=== PATIENT | male | born 1960 | race Caucasian/White ===

== ENCOUNTER 2016-11-15 21:00 | Observation (INO) | payer MEDICAID, MEDICARE ==
--- NOTE | 2016-11-15 22:11 | RADIOLOGY REPORT (SQ) ---
EXAM DESCRIPTION: CT HEAD WITHOUT COMPLETED DATE/TIME: 11/15/2016 10:01 pm REASON FOR STUDY: stroke alert COMPARISON: None. TECHNIQUE: Axial images acquired through the brain without intravenous contrast. Images reviewed wi th bone, brain and subdural windows. Images stored on PACS. All CT scanners at this facility use dose modulation, iterative reconstruction, and/or weight based d osing when appropriate to reduce radiation dose to as low as reasonably achievable (ALARA). [facility]: Dose Right [facility]: CareDose [facility]: Dose Right [facility]: Teradose 4D [facility]: Smart EpiBone RADIATION DOSE: Up-to-date CT equipment and radiation dose reduction techniques were employed. CTDIv ol: 49.0 mGy. DLP: 1077 mGy-cm. mGy. LIMITATIONS: None. FINDINGS: VENTRICLES: Normal size and contour. CEREBRUM: No masses. No hemorrhage. No midline shift. Normal shane/white matter differentiation. N o evidence for acute infarction. CEREBELLUM: No masses. No hemorrhage. No alteration of density. No evidence for acute infarction. EXTRAAXIAL SPACES: No fluid collections. No masses. ORBITS AND GLOBE: No intra- or extraconal masses. Normal contour of globe without masses. CALVARIUM: No fracture. PARANASAL SINUSES: No fluid or mucosal thickening. SOFT TISSUES: No mass or hematoma. OTHER: No other significant finding. IMPRESSION: NORMAL BRAIN CT WITHOUT CONTRAST. TECHNICAL DOCUMENTATION: JOB ID: [id number] Quality ID # [id number]: Final reports with documentation of one or more dose reduction techniques (e.g., Au tomated exposure control, adjustment of the mA and/or kV according to patient size, use of iterative reconstruction technique) 2010 [employer]- All Rights Reserved
--- NOTE | 2016-11-15 22:12 | RADIOLOGY REPORT (SQ) ---
EXAM DESCRIPTION: CHEST SINGLE VIEW COMPLETED DATE/TIME: 11/15/2016 10:05 pm REASON FOR STUDY: stroke alert COMPARISON: July 2013 EXAM PARAMETERS: NUMBER OF VIEWS: One view. TECHNIQUE: Single frontal radiographic view of the chest acquired. RADIATION DOSE: NA LIMITATIONS: None. FINDINGS: LUNGS AND PLEURA: No opacities, masses or pneumothorax. No pleural effusion. MEDIASTINUM AND HILAR STRUCTURES: No masses. Contour normal. HEART AND VASCULAR STRUCTURES: Cardiac silhouette is at the upper limits of normal in size. BONES: Degenerative changes are identified in the thoracic spine HARDWARE: None in the chest. OTHER: No other significant finding. IMPRESSION: NO ACUTE RADIOGRAPHIC FINDING IN THE CHEST. TECHNICAL DOCUMENTATION: JOB ID: [id number]
--- NOTE | 2016-11-15 22:14 | ER Document Report ---
ED General - General Chief Complaint: S/S of Possible Stroke Stated Complaint: HEADACHE/LEFT HAND NUMB Time Seen by Provider: 11/15/16 21:59 Notes: Patient is a 56-year-old male who presents with complaint of strokelike symptoms. On patient's triage sheet he says he has a headache and left-sided weakness. Patient says that the headache is actually nothing new. He says he has recurrent intermittent headaches. He says headache feels like his typical headache and is unchanged. He says the main reason he came in is because he noticed is having worsening difficulty with his left upper extremity. He said that he noticed it first this morning. He says throughout the day has been worsening. He says at times he cannot open his hand. He says he has poor control of his left arm as hard time moving his left arm. He is also had a hard time expressing thoughts through speech also has noticed that he is having a difficult time comprehending what he is seeing on TV. Denies any trauma to his head. He denies previous history of stroke. Denies any recent infections or fevers. He says he used to be on blood pressure medications but no longer take them. He does smoke. He says he does not take any medications. No alcohol or drug history. TRAVEL OUTSIDE OF THE [place] IN LAST 30 DAYS: No - Related Data Allergies/Adverse Reactions: No Known Allergies Allergy (Verified 11/15/16 21:49) Past Medical History - Social History Smoking Status: Current Every Day Smoker Frequency of alcohol use: None Drug Abuse: None Family History: Reviewed & Not Pertinent - Past Medical History Cardiac Medical History: Reports: Hx Hypertension, Hx Peripheral Vascular Disease Renal/ Medical History: Denies: Hx Peritoneal Dialysis Past Surgical History: Reports: Hx Orthopedic Surgery - left knee 30 years ago, Hx Vascular Surgery - arterial bypasses both legs - Immunizations Hx Diphtheria, Pertussis, Tetanus Vaccination: No Review of Systems - Review of Systems Notes: My Normal Review Basic REVIEW OF SYSTEMS: CONSTITUTIONAL : Denies fever, chills, or sweats. Denies recent illness. EENT: Denies eye, ear, throat, or mouth pain or symptoms. Denies nasal or sinus congestion. CARDIOVASCULAR: Denies chest pain. RESPIRATORY: Denies cough, cold, or chest congestion. Denies shortness of breath, difficulty breathing, or wheezing. GASTROINTESTINAL: Denies abdominal pain. Denies nausea, vomiting, or diarrhea. Denies constipation. Last BM: GENITOURINARY: Denies difficulty urinating, painful urination, burning, frequency, or blood in urine. MUSCULOSKELETAL: Denies neck or back pain or joint pain or swelling. SKIN: Denies rash or skin lesions. HEMATOLOGIC : Denies easy bruising or bleeding. LYMPHATIC: Denies swollen, enlarged glands. NEUROLOGICAL: Denies altered mental status or loss of consciousness. Recurrent chronic headache. Weakness of left upper extremity. ALL OTHER SYSTEMS REVIEWED AND NEGATIVE. Physical Exam - Vital signs Vitals: Temp Pulse Resp BP Pulse Ox 97.7 F 92 18 163/95 H 96 11/15/16 21:50 11/15/16 21:50 11/15/16 21:50 11/15/16 21:50 11/15/16 21:50 - Notes Notes: General Appearance: Well nourished, alert, cooperative, no acute distress, no obvious discomfort. Vitals: reviewed, See vital signs table. Head: no swelling or tenderness to the head Eyes: PERRL, EOMI, Conjuctiva clear Mouth: No decreasd moisture Neck: Supple, no neck tenderness, No thyromegaly Lungs: No wheezing, No rales, No rhonci, No accessory muscle use, good air exchange bilaterally. Heart: Normal rate, Regular rythm, No murmur, no rub Abdomen: Normal BS, soft, No rigidity, No abdominal tenderness, No guarding, no rebound, no abdominal masses, no organomegaly Extremities: strength 5/5 in all extremities, good pulses in all extremities, no swelling or tenderness in the extremities, no edema. Skin: warm, dry, appropriate color, no rash Neuro: speech clear, oriented x 3, normal affect, responds appropriately to questions. Cranial nerves II through XII are intact with exception of slight facial droop on the right with smiling. Patient has obvious weakness and discoordination of the left upper extremity. Patient's gait is slightly staggered but he says this is normal for him and unchanged. Patient is good strength with plantar dorsiflexion of both lower extremities. Patient has some pronator drift in the left upper extremity. Right upper extremity is normal. Distal sensation is intact in all 4 extremities except for some mild numbness in her lower extremities which she says is chronic due to history of vascular disease in his lower extremities. Course - Re-evaluation Re-evalutation: 11/15/16 23:59 On reevaluation patient's symptoms have remained the same and they are not progressing. I did speak with the hospitalist who agrees to admit the patient due to his symptoms of stroke. Patient is agreeable to the admission. Dictation of this chart was performed using voice recognition software; therefore, there may be some unintended grammatical errors. - Vital Signs Vital signs: Temp Pulse Resp BP Pulse Ox 97.7 F 105 H 27 H 136/106 H 95 11/15/16 21:50 11/15/16 22:10 11/15/16 23:01 11/15/16 23:00 11/15/16 23:01 - Laboratory Result Diagrams: 11/15/16 22:20 11/15/16 23:00 Laboratory results interpreted by me: 11/15/16 11/15/16 22:20 23:00 WBC 11.4 H Hgb 18.0 H Hct 53.9 H MCV 100 H MCH 33.6 H RDW 14.1 H Chloride 108 H - EKG Interpretation by Me Additional EKG results interpreted by me: 11/15/16 22:45 EKG is reviewed and interpreted by me. EKG shows sinus rhythm with rate of [address] segment elevation or depression. Patient does have slight T-wave inversion in lead I and aVL. TN interval, QRS duration, QTc intervals are within normal range. Old EKG for comparison is from August 04, 2013.
[2016-11-15 22:35] LABS: ABSOLUTE BASOPHILS # (AUTO) 0.1 10^3/uL (0.0-0.2); ABSOLUTE EOSINOPHILS # (AUTO) 0.1 10^3/uL (0.0-0.6); ABSOLUTE LYMPHOCYTES (AUTO) 2.9 10^3/uL (0.5-4.7); ABSOLUTE MONOCYTES (AUTO) 0.9 10^3/uL (0.1-1.4); ABSOLUTE NEUT (AUTO) 7.4 10^3/uL (1.7-8.2); BASOPHILS % (AUTO) 1.1 % (0-2); EOSINOPHILS % (AUTO) 0.7 % (0-6); HEMATOCRIT 53.9 % (37.9-51.0); HGB HCT DIFFERENCE 0.1; LYMPHOCYTES % (AUTO) 25.5 % (13-45); MEAN CORPUSCULAR HEMOGLOBIN 33.6 pg (27.0-33.4); MEAN CORPUSCULAR HGB CONC 33.4 g/dL (32.0-36.0); MEAN CORPUSCULAR VOLUME 100 fl (80-97); MONOCYTES % (AUTO) 8.1 % (3-13); RED BLOOD COUNT 5.37 10^6/uL (4.35-5.55); RED CELL DISTRIBUTION WIDTH 14.1 % (11.5-14.0); SEGMENTED NEUTROPHILS % (AUTO) 64.6 % (42-78); WHITE BLOOD COUNT 11.4 10^3/uL (4.0-10.5)
[2016-11-15 22:40] LABS: PARTIAL THROMBOPLASTIN TIME 31.5 SEC (23.5-35.8)
[2016-11-15 22:42] LABS: PROTHROMBIN TIME 12.7 SEC (11.4-15.4)
--- NOTE | 2016-11-15 22:47 | ER Document Report ---
ED NIH Stroke Scale - NIH Stroke Scale *: 1. NIH scale should be completed with appropriate accompanying assessment tools. *: 2. The NIH should reflect what the patient is capable of doing and should not be coached by the clinician. 1a. Level of Consciousness: 0=Alert;keenly responsive -: 1=Drowsy -: 2=Obtunded -: 3=Coma/unresponsive or reflex to noxious stimuli. 1a. Responses: 0 1b. Orientation Questions: a. What month is it? -: b. How old are you? -: 0=Answers both questions correctly. -: 1=Answers one question correctly or patient is intubated or has orotracheal trauma. -: 2=Answers neither question correctly. 1b. Responses: 0 1c. Response to commands: a. Open and close eyes? -: b. Boiler Technician and release hand? -: Credit is given despite weakness. Demonstration of task is permitted. Substitute command if hands cannot be used. -: 0=Performs both tasks correctly -: 1=Performs one task correctly -: 2=Performs neither task correctly 1c. Responses: 0 2. Gaze: Establish eye contact and instruct patient to "Follow my finger" -: 0=Normal -: 1=Partial gaze palsy. Gaze is abnormal in one or both eyes, but where forced deviation or total gaze paresis is not present. -: 2=Forced deviation or total gaze paresis. 2. Responses: 0 3. Visual Boucher: Sees fingers in all four quadrants. -: 0=No visual loss. -: 1=Partial hemianopsia. -: 2=Complete hemianopsia. -: 3=Bilateral hemianopsia (including Cortical blindness) 3. Responses: 0 4. Facial Movement: Instruct patient to: -: a. Show me your teeth -: b. Raise your eyebrows -: c. Close your eyes -: d. Smile -: 0=Normal symmetrical movement -: 1=Minor paralysis (flattened nasolabial fold, asymmetry on smiling). -: 2=Partial paralysis (total or near total paralysis of lower face). -: 3=Complete paralysis of upper and lower face 4. Responses: 1 5. Motor functions (left arm): Alternate sides and extend each arm with palms down (90 degrees if sitting or 45 degrees for supine). -: 0=No drift;limb holds for full 10 seconds. -: 1=Drift; limb holds but drifts down before full 10 seconds, but does not hit bed. -: 2=Some effort against gravity; limb cannot get to or maintain position. -: 3=No effort against gravity; limb falls. -: 4=No movement. -: UN=Amputation, joint fusion, explain in comments. 5. Responses (left arm): 1 5. Motor Functions (right arm): Alternate sides and extend each arm with palms down (90 degrees if sitting or 45 degrees for supine). -: 0=No drift;limb holds for full 10 seconds. -: 1=Drift; limb holds but drifts down before full 10 seconds, but does not hit bed. -: 2=Some effort against gravity; limb cannot get to or maintain position. -: 3=No effort against gravity; limb falls. -: 4=No movement. -: UN=Amputation, joint fusion, explain in comments. 5. Responses (right arm): 0 6. Motor Functions (left leg): With patient lying supine, alternate sides and extend each leg (30 degrees always while supine). -: 0=No drift, leg holds position for full 5 seconds -: 1=Drift; leg falls before full 5 seconds but does not hit bed. -: 2=Some effort against gravity, leg falls to bed but some effort against gravity. -: 3=No effort against gravity, leg falls to bed immediately. -: 4=No movement. -: UN=Amputation, joint fusion; explain in comments. 6. Responses (left leg): 0 6. Motor Functions (right leg): With patient lying supine, alternate sides and extend each leg (30 degrees always while supine). -: 0=No drift, leg holds position for full 5 seconds -: 1=Drift; leg falls before full 5 seconds but does not hit bed. -: 2=Some effort against gravity, leg falls to bed but some effort against gravity. -: 3=No effort against gravity, leg falls to bed immediately. -: 4=No movement. -: UN=Amputation, joint fusion; explain in comments. 6. Responses (right leg): 0 7. Limb Ataxia: With eyes open instruct patient to: -: a. "Touch your finger to your nose". -: b. "Touch your heel to your wilson" -: 0=Absent -: 1=Present in one limb. -: 2=Present in two limbs. -: UN=Amputation or joint fusion; explain in comments. 7. Responses: 1 7. If ataxia present choose as appropriate: Left arm 8. Sensory: Test sensation using pinprick or noxious stimuli. Test as many body parts as possible. -: 0=Normal;no sensory loss -: 1=Mile to moderate sensory loss (patient feels pin prick but is less sharp on affected side). -: 2=Severe or total sensory loss. 8. Responses: 0 9. Best Language: Instruct patient to: -: a. "Describe what you see in this picture." -: b. "Name the items in this picture." -: c. "Read these sentences." -: 0=No aphasia, normal -: 1=Mild to moderate aphasia. -: 2=Severe aphasia -: 3=Mute, global aphasia, no usable speech or auditory comprehension. 9. Responses: 0 10. Articulation, Dysarthia: Instruct patient to: -: "Read these words" or "Repeat these words" -: 0=Normal -: 1=Mild to moderate; patient may slur some words but can be understood without difficulty. -: 2=Severe; patients speech so slurred as to be unintelligible in the absence of dysphasia. -: UN=Intubated or other physical barrier, explain in comments. 10. Responses: 0 11. Extinction or inattention: 0=No abnormality -: 1= Visual, tactile, auditory, spatial, or personal inattention or extinction to bilateral simulation in one or the sensory modalities. -: 2=Profound zackary-inattention or zackary-inattention to more than one modality; does not recognize own hand. 11. Responses: 0 Total Score: 3
[2016-11-15 23:29] LABS: ALANINE AMINOTRANSFERASE 34 U/L (21-72); ALBUMIN 4.1 g/dL (3.5-5.0); ALKALINE PHOSPHATASE 57 U/L (38-126); ANION GAP 12 (5-19); ASPARTATE AMINO TRANSFERASE 19 U/L (17-59); BILIRUBIN,DIRECT 0.4 mg/dL (0.0-0.4); BILIRUBIN,TOTAL 0.5 mg/dL (0.2-1.3); BLOOD UREA NITROGEN 9 mg/dL (7-20); CALCIUM 9.1 mg/dL (8.4-10.2); CARBON DIOXIDE 23 mmol/L (22-30); CHLORIDE 108 mmol/L (98-107); CREATINE KINASE 149 U/L (55-170); CREATININE RESULT 0.83 mg/dL (0.52-1.25); GLUCOSE 103 mg/dL (75-110); POTASSIUM 4.3 mmol/L (3.6-5.0); SODIUM 142.6 mmol/L (137-145); TOTAL PROTEIN 7.3 g/dL (6.3-8.2)
[2016-11-15] MEDS ORDERED: ASPIRIN 325 MG TABLET PO ONE (23:32)
[2016-11-15 23:41] LABS: CREATINE KINASE MB 1.73 ng/mL (<4.55)
[2016-11-15 23:43] LABS: TROPONIN I < 0.012 ng/mL
[2016-11-16] MEDS ORDERED: ACETAMINOPHEN 325 MG TABLET PO PRN (04:20)
[2016-11-16] MEDS ORDERED: DEXTROSE 5%-NORMAL SALINE 1,000 ML IV PRN (04:20)
[2016-11-16] MEDS ORDERED: MAGNESIUM HYDROXIDE SUSP 30 ML UDCUP PO PRN (04:20)
[2016-11-16] MEDS ORDERED: PROMETHAZINE HCL 25 MG TABLET PO PRN (04:27)
--- NOTE | 2016-11-16 04:49 | PDOC H&P ---
History of Present Illness Admission Date/PCP: 11/16/16 03:12 Primary care provider none Patient complains of: Strokelike symptoms History of Present Illness: JOSIAH TAMAYO is a 56 year old male with known peripheral vascular disease, having undergone a previous aortobifemoral bypass, hypertension, noncompliance, having been off all medications for some time now, chronic headaches, and half pack a day smoker who presents to the emergency room for evaluation of above complaints. Patient has been discussed with emergency room physician who evaluated the patient. Since the morning of the , patient has noted difficulty moving and controlling his left upper extremity. Gradually worsened throughout the day. At one point, could not open his left hand. Also is having difficulty expressing his thoughts, along with difficulty comprehending content on the television. No dysphagia, drooling, dysarthria, or any change in the chronic difficulty he has with his lower extremities. States that if he walks more than a few minutes , he not uncommonly will fall down, that his legs "give way." Recurrence of his typical headache. Denies any head trauma. No history of stroke, TIA, mini stroke, or seizure. No nausea vomiting, fever or chills, chest or abdominal pain.. Hospitalized at our facility the through 06 August 2013, with final diagnoses including abdominal wall hematoma involving rectus muscle. Discharge summary and hospitalist consult reviewed. Dictation via voice recognition software. Laboratory results are listed in [facility] and are reviewed. X-ray summary results are listed below, with full report(s) reviewed. . EKG 2 reviewed and compared to a prior tracing from August 04, 2013. Social history/personal habits: . Has children. On disability and unemployed, primarily due to his peripheral vascular disease. Half pack of cigarettes per day. No alcohol or illicit drug use. No known drug allergies. Home medications currently none. States he was previously on multiple medications, but a number of months ago, simply stopped taking them. REVIEW OF SYSTEMS: Constitutional: No fever or chills. Eyes: Wears glasses. ENT: No swallowing problems or complaints. Denies hearing loss. Pulmonary: No current complaints. Cardiovascular: No chest pain. See history and present illness. Gastrointestinal: No current complaints, including nausea or vomiting. Skin: No current complaints, including rashes. Hematologic: Denies easy bruising. Neurologic: See history and present illness. Musculoskeletal: No current or chronic joint complaints, such as arthritis. Psychiatric: Denies anxiety or depression. Endocrine: No current complaints, including polyuria. Genitourinary: No current complaints, including dysuria. PHYSICAL EXAMINATION: 5 feet 9 inches tall. 97.4 kg. BMI 31.7 kg/m. Blood pressure 122/88. Pulse 92 and regular. 95% saturation on room air. Respirations are 24 and unlabored. Temperature 97.7. Obese otherwise well-developed though somewhat disheveled bearded male , who nevertheless appears a number of years younger than his stated age. Pleasant awake alert and cooperative. Somewhat talkative. Mildly anxious, without agitation. Smells of tobacco smoke. Skin is warm and dry. No grossly obvious evidence of rash in areas of skin examined. No subcutaneous nodules palpated. ENT: Hearing grossly normal to normal conversation. Tongue midline on protrusion pink and slightly tacky. Eyes: No scleral icterus. Pupils equal and reactive to light at 4 mm. [place] conjunctivae. Neck is supple and nontender to gentle active range of motion and palpation. Midline trachea. No palpable thyroid nodule mass enlargement or tenderness. Lymphatic: No palpable cervical or clavicular nodes. Neck and lymphatic exams limited by patient body habitus. Psychiatric: Reasonable insight into acute and chronic medical issues. Oriented to time location and why here. Lungs: Auscultation reveals clear and equal breath sounds bilaterally. No use of accessory respiratory muscles. Cardiovascular: Heart regular rate and rhythm, without gallop murmur or rub. No carotid or abdominal aortic bruits. No ankle or pedal edema. Faintly palpable left dorsalis pedis pulse. Not sure I can palpate dorsalis pedis and posterior tibial pulses on the right, but foot is warm and dry, with quite acceptable capillary refill. Abdomen:soft slightly distended nontender with positive bowel sounds. Unable to adequately evaluate abdomen for masses or organomegaly due to distention. Extremities: Hands and feet are warm and dry. No calf tenderness to compression. No grossly obvious visual evidence of calf swelling. Gentle manipulation of upper and lower extremities fails to reveal any obvious evidence of injury or instability to involved major joints. Neurologic: Cranial Nerves II through XII are grossly intact, although a bit difficult to examine for drooping of the mouth due to his rather thick estrada. Light touch intact at face, upper and lower extremities. Motor function of major muscle groups upper and lower extremities 5 over 5 and symmetric, with the exception of very subtle weakness in left price lister versus right. Patellar reflexes absent. Absent Babinski. No nystagmus. Appears to have slight difficulty with proprioception of his left upper extremity. Observe to move from a standing to seated to supine position with only slight difficulty sliding up in bed while seated. Past Medical History Cardiac Medical History: Reports: Hypertension, Peripheral Vascular Disease Denies: Atrial Fibrillation, Congestive Heart Failure, Coronary Artery Disease, DVT, Myocardial Infarction, Hyperlipidema, Pulmonary Embolism Pulmonary Medical History: Denies: Asthma, Chronic Obstructive Pulmonary Disease (COPD), Sleep Apnea EENT Medical History: Reports: Eyes - Glasses Denies: Ears, Throat Neurological Medical History: Denies: Hemorrhagic CVA, Ischemic CVA, Seizures Endocrine Medical History: Denies: Diabetes Mellitus Type 1, Diabetes Mellitus Type 2, Hyperthyroidism, Hypothyroidism Renal/ Medical History: Reports: None GI Medical History: Denies: Cirrhosis, Gastroesophageal Reflux Disease, Hepatitis, Peptic Ulcer Disease Musculoskeltal Medical History: Denies: Arthritis Skin Medical History: Reports: None Psychiatric Medical History: Reports: Tobacco Dependency Denies: Alcohol Dependency, Depression, General Anxiety Disorder, Substance Abuse Hematology: Reports: None Infectious Medical History: Denies: Clostridium Difficile, Hepatitis B, Hepatitis C, Methicillin- Resistant Staph Aureus Past Surgical History Past Surgical History: Reports: Orthopedic Surgery - left knee 30 years ago, Vascular Surgery - Aortobifemoral bypass Social History Information Source: Patient, Emergency Med Personnel, [facility] Records Smoking Status: Current Every Day Smoker Frequency of Alcohol Use: None Hx Recreational Drug Use: No Drugs: None Hx Prescription Drug Abuse: No - Advance Directive Resuscitation Status: Full Code Surrogate healthcare decision maker:: Mother Family History Family History: Reviewed & Not Pertinent Parental Family History Reviewed: Yes - Mother with "typical old age problems" father of old age. Children Family History Reviewed: Yes - Healthy Sibling(s) Family History Reviewed.: Yes - Healthy Medication/Allergy Home Medications: Acetaminophen [Tylenol 325 mg Tablet] 650 mg PO Q4HP PRN tablet 11/17/16 Aspirin [Aspirin 325 mg Tablet] 325 mg PO DAILY #30 tablet 11/17/16 Atorvastatin Calcium [Lipitor 40 mg Tablet] 40 mg PO QHS #30 tablet 11/17/16 Carvedilol [Coreg 6.25 mg Tablet] 6.25 mg PO Q12 #60 tablet 11/17/16 Lisinopril [Prinivil 10 mg Tablet] 10 mg PO DAILY #30 tablet 11/17/16 Walker [Folding Walker] 1 each ASDIR PRN #1 each 11/17/16 Allergies/Adverse Reactions: No Known Allergies Allergy (Verified 11/16/16 04:26) Physical Exam Vital Signs: Temp Pulse Resp BP Pulse Ox 97.7 F 77 20 122/85 93 11/15/16 21:50 11/16/16 01:10 11/16/16 03:31 11/16/16 03:31 11/16/16 03:31 Results Impressions: Chest X-Ray 11/15/16 21:53 IMPRESSION: NO ACUTE RADIOGRAPHIC FINDING IN THE CHEST. Head CT 11/15/16 21:53 IMPRESSION: NORMAL BRAIN CT WITHOUT CONTRAST. Assessment & Plan - Diagnosis (1) Abnormal EKG Is this a current diagnosis for this admission?: YesPlan: No outward evidence of acute coronary syndrome, but will obtain serial troponins , along with repeat EKG. Denies chest pain. (2) Acute focal neurological deficit Is this a current diagnosis for this admission?: YesPlan: Patient will be placed in observation bed admitted under CVA/TIA protocol. Multiple imaging procedures, intracranial, vascular, and cardiac. lipid panel. Permissive hypertension. Patient is a full code. I have strongly urged patient not to get out of bed without calling nursing staff, to avoid a fall with injury. Knee high SCDs for DVT prophylaxis, along with subcutaneous Lovenox. Impression and plans were discussed with patient, who concurs. Time spent in evaluation and management of patient: 68 minutes (3) Left hemiparesis Is this a current diagnosis for this admission?: Yes (4) HTN (hypertension) Qualifiers: Hypertension type: essential hypertension Qualified Code(s): I10 - Essential (primary) hypertension Is this a current diagnosis for this admission?: YesPlan: Permissive hypertension. (5) Tobacco dependency Is this a current diagnosis for this admission?: Yes - Time Time Spent: 50 to 70 Minutes Medications reviewed and adjusted accordingly: Yes Anticipated discharge: Home Within: within 48 hours
[2016-11-16 05:21] LABS: ABSOLUTE BASOPHILS # (AUTO) 0.1 10^3/uL (0.0-0.2); ABSOLUTE EOSINOPHILS # (AUTO) 0.1 10^3/uL (0.0-0.6); ABSOLUTE LYMPHOCYTES (AUTO) 2.9 10^3/uL (0.5-4.7); ABSOLUTE MONOCYTES (AUTO) 0.9 10^3/uL (0.1-1.4); ABSOLUTE NEUT (AUTO) 5.4 10^3/uL (1.7-8.2); BASOPHILS % (AUTO) 1.2 % (0-2); EOSINOPHILS % (AUTO) 0.6 % (0-6); HEMATOCRIT 50.1 % (37.9-51.0); HEMOGLOBIN 17.3 g/dL (13.5-17.0); HGB HCT DIFFERENCE 1.8; LYMPHOCYTES % (AUTO) 30.9 % (13-45); MEAN CORPUSCULAR HGB CONC 34.5 g/dL (32.0-36.0); MEAN CORPUSCULAR VOLUME 99 fl (80-97); MONOCYTES % (AUTO) 9.6 % (3-13); RED BLOOD COUNT 5.07 10^6/uL (4.35-5.55); RED CELL DISTRIBUTION WIDTH 13.9 % (11.5-14.0); SEGMENTED NEUTROPHILS % (AUTO) 57.7 % (42-78); WHITE BLOOD COUNT 9.4 10^3/uL (4.0-10.5)
[2016-11-16 05:31] LABS: CHOLESTEROL 166.11 mg/dL (0-200); Direct HDL 31 mg/dL (>40); TRIGLYCERIDES 126 mg/dL (<150)
[2016-11-16 05:42] LABS: DIRECT LDL 123 mg/dL (<100)
--- NOTE | 2016-11-16 08:06 | EKG REPORT ---
SEVERITY:- ABNORMAL ECG - SINUS RHYTHM PROBABLE LEFT ATRIAL ABNORMALITY ANTERIOR INFARCT, AGE INDETERMINATE (since 08.04.13) : Confirmed by: Sloan Kessler MD 16-Nov-2016 08:05:31
--- NOTE | 2016-11-16 09:53 | RADIOLOGY REPORT (SQ) ---
EXAM DESCRIPTION: MRI HEAD WITHOUT COMPLETED DATE/TIME: 11/16/2016 9:39 am REASON FOR STUDY: tia vs cva--lt hemiparesis D72.829 ELEVATED WHITE BLOOD CELL COUNT, UNSPECIFIED I 10 ESSENTIAL (PRIMARY) HYPERTENSION COMPARISON: CT dated 11/15/2016. TECHNIQUE: Multiplanar imaging includes non-contrasted T1, T2, FLAIR, and diffusion with ADC map seq uences. Images stored on PACS. LIMITATIONS: None. FINDINGS: ANATOMY: No anomalies. Normal vascular flow voids. Pituitary fossa normal. CSF SPACES: Atrophy induced prominence of ventricles and CSF spaces. CEREBRUM: High signal intensity lesions scattered throughout the white matter on FLAIR imaging with d istribution suggesting micro-vascular ischemic changes. No evidence of hemorrhage, mass, or extraaxi al fluid collection. POSTERIOR FOSSA: No signal alteration. No hemorrhage. No edema, masses or mass effect. Internal angelic tory canals, cerebello-pontine angles, mastoids normal. DIFFUSION IMAGING: Several areas of restricted diffusion in the right parietal lobe and occipital lob e. One focal area of restricted diffusion in the right cerebellar hemisphere. ORBITS: No masses. Globes normal. PARANASAL SINUSES: No fluid levels. Mucosa normal. OTHER: No other significant finding. IMPRESSION: ATROPHY AND CHRONIC MICRO-VASCULAR ISCHEMIC CHANGES. There are several areas of restric mame diffusion consistent with acute infarct in the right parietal lobe and occipital lobe and one sma ll focal area of restricted diffusion in the right cerebellar hemisphere. EVIDENCE OF ACUTE STROKE: YES. RIGHT MCA TECHNICAL DOCUMENTATION: JOB ID: [id number] [employer]- All Rights Reserved
[2016-11-16] MEDS: ENOXAPARIN SODIUM INJ 40 MG/0.4 ML DISP.SYRIN SUBCUT SCH (10:53)
[2016-11-16] MEDS: ATORVASTATIN CALCIUM 80 MG TABLET PO SCH (10:54)
[2016-11-16] MEDS: DOCUSATE SODIUM 100 MG CAPSULE PO SCH ×2 (10:55→17:19)
[2016-11-16] MEDS: ASPIRIN 325 MG TABLET, ENT COATED PO SCH (10:55)
--- NOTE | 2016-11-16 12:57 | RADIOLOGY REPORT (SQ) ---
EXAM DESCRIPTION: CAROTID DOPPLER COMPLETED DATE/TIME: 11/16/2016 11:57 am REASON FOR STUDY: tia vs cva--lt hemiparesis D72.829 ELEVATED WHITE BLOOD CELL COUNT, UNSPECIFIED I 10 ESSENTIAL (PRIMARY) HYPERTENSION COMPARISON: None. TECHNIQUE: Grayscale ultrasound, Doppler velocity and spectra, and color Doppler images acquired of the extra-cranial carotid and vertebral arteries. Images stored on PACS. LIMITATIONS: None. FINDINGS: RIGHT CAROTID CCA Velocities: Within normal limits. ICA Velocities Peak systolic 0.7 m/s. End diastolic 0.37 m/s. Proximal ICA/CCA peak systolic ratio 0.9. Spectra normal. No significant plaque. LEFT CAROTID CCA Velocities: Within normal limits. ICA Velocities Peak systolic 0.6 m/s. End diastolic 0.2 m/s. Proximal ICA/CCA peak systolic ratio 0.8. Spectra normal. No significant plaque. VERTEBRAL ARTERIES: Antegrade flow. Normal waveforms. SUBCLAVIAN ARTERIES: No finding. OTHER: No other significant finding. IMPRESSION: NO HEMODYNAMICALLY SIGNIFICANT STENOSIS. COMMENT: Quality ID #[id number]: Velocity criteria are extrapolated from the diameter data as defined by t he Society of Radiologists in Ultrasound Consensus Conference. Radiology 2003: 229; 340-346. TECHNICAL DOCUMENTATION: JOB ID: [id number] [employer]- All Rights Reserved
--- NOTE | 2016-11-16 13:15 | XCELERA REPORT ---
[address] [address] Transthoracic Echocardiogram Report Name: JOSIAH TAMAYO Age: 56 yrs Gender: Male : 1960 Patient Status: Inpatient Patient Location: [id number]\S\315\[id number]\A Study Date: 11/16/2016 10:02 AM Height: 69 in Weight: 214 lb BSA: 2.1 m2 Procedure: A complete two-dimensional transthoracic echocardiogram was performed (2D, M-mode, spectral and color flow Doppler). The study was technically difficult with many images being suboptimal in quality. Reason For Study: tia vs cva--lt hemiparesis Ordering Physician: TALIA AMBRIZ Performed By: Corinne Schneider Interpretation Summary Left ventricular systolic function is severely reduced. LV EF is 35% Doppler measurements suggest pseudonormalized left ventricular relaxation, which is associated with grade II/IV or mild to moderate diastolic dysfunction Increased echodensity at apex is suspicious for thrombus. There is apical wall akinesis The left ventricle is grossly normal size. There is mild concentric left ventricular hypertrophy. The right ventricular systolic function is normal. The left atrial size is normal. The right atrium is normal in size There is a trace amount of mitral regurgitation There is no mitral valve stenosis. No aortic regurgitation is present. There is no aortic valve stenosis There is a trace or physiologic amount of tricuspid regurgitation Tricuspid regurgitation jet envelope not well defined to measure RV systolic pressure accurately. The aortic root is not well visualized but is probably normal size. The inferior vena cava was not well visualized There is no pericardial effusion. MMode/2D Measurements \T\ Calculations RVDd: 3.0 cm LVIDd: 5.6 cmFS: 16.1 % Ao root diam: 3.9 cm IVSd: 1.2 cm LVIDs: 4.7 cmEDV(Teich): 155.9 ml LVPWd: 1.2 cmESV(Teich): 103.8 mlAo root area: 11.8 cm2 EF(Teich): 33.4 % LA dimension: 3.6 cm LVOT diam: 2.6 cm LVOT area: 5.2 cm2 Doppler Measurements \T\ Calculations MV E max jose de jesus: MV P1/2t max jose de jesus: Ao V2 max: LV V1 max P.7 cm/sec 49.4 cm/sec 92.8 cm/sec 2.1 mmHg MV A max jose de jesus: MV P1/2t: 58.2 msec Ao max PG: LV V1 max: 87.3 cm/sec MVA(P1/2t): 3.8 cm2 3.4 mmHg 73.1 cm/sec MV E/A: 0.56 MV dec slope: MIGUE(V,D): 4.1 cm2 248.5 cm/sec2 PA V2 max: 58.0 cm/sec PA max P.3 mmHg Left Ventricle The left ventricle is grossly normal size. There is mild concentric left ventricular hypertrophy. Left ventricular systolic function is severely reduced. LV EF is 35%. Doppler measurements suggest pseudonormalized left ventricular relaxation, which is associated with grade II/IV or mild to moderate diastolic dysfunction. There is apical wall akinesis. Increased echodensity at apex is suspicious for thrombus. Right Ventricle The right ventricle is normal in size, thickness and function. There is normal right ventricular wall thickness. The right ventricular systolic function is normal. Atria The right atrium is normal in size. The left atrial size is normal. Interarterial septum not well visualized and not well dopplered. Cannot comment on ASD/PFO presence. Mitral Valve The mitral valve is grossly normal. There is no mitral valve stenosis. There is a trace amount of mitral regurgitation. Aortic Valve The aortic valve is not well visualized secondary to technical limitations. There is no aortic valve stenosis. No aortic regurgitation is present. Tricuspid Valve The tricuspid valve is not well visualized, but is grossly normal. There is no tricuspid stenosis. There is a trace or physiologic amount of tricuspid regurgitation. Tricuspid regurgitation jet envelope not well defined to measure RV systolic pressure accurately. Pulmonic Valve The pulmonic valve is not well visualized. Great Vessels The aortic root is not well visualized but is probably normal size. The inferior vena cava was not well visualized. Effusions There is no pericardial effusion. : TALIA AMBRIZ > Elida Hayden
--- NOTE | 2016-11-16 13:55 | PDOC PROGRESS REPORT ---
Subjective Progress Note for:: 11/16/16 Subjective:: Patient was seen on morning rounds. He states he still has some left arm and leg weakness but it is much better that it was when he came in . He admits to not taking any medications that he has been prescribed for sometime. He also smokes 1-2 ppd of cigarettes. He denies any dysphagia or difficulty swallowing. Physical Exam Vital Signs: Temp Pulse Resp BP Pulse Ox 97.8 F 86 21 H 122/76 97 11/16/16 12:18 11/16/16 12:18 11/16/16 12:18 11/16/16 12:18 11/16/16 12:18 Intake & Output 11/15/16 11/16/16 11/17/16 06:59 06:59 06:59 Intake Total 598 Balance 598 General appearance: PRESENT: no acute distress, disheveled, obese, well- developed, well-nourished Head exam: PRESENT: atraumatic, normocephalic Eye exam: PRESENT: conjunctiva pink, EOMI, PERRLA. ABSENT: scleral icterus Ear exam: PRESENT: normal external ear exam Mouth exam: PRESENT: moist, tongue midline Neck exam: ABSENT: carotid bruit, JVD, lymphadenopathy, thyromegaly Respiratory exam: PRESENT: clear to auscultation osavldo. ABSENT: rales, rhonchi, wheezes Cardiovascular exam: PRESENT: RRR. ABSENT: diastolic murmur, rubs, systolic murmur Pulses: PRESENT: normal carotid pulses, normal radial pulses Vascular exam: PRESENT: normal capillary refill GI/Abdominal exam: PRESENT: normal bowel sounds, soft. ABSENT: distended, guarding, mass, organolmegaly, rebound, tenderness Rectal exam: PRESENT: deferred Extremities exam: PRESENT: full ROM. ABSENT: calf tenderness, clubbing, pedal edema Musculoskeletal exam: PRESENT: ambulatory, full ROM Neurological exam: PRESENT: alert, awake, oriented to person, oriented to place , oriented to time, oriented to situation, CN II-XII grossly intact, normal gait , other - left sided weakness 4/5 in muscle strenght. ABSENT: motor sensory deficit Psychiatric exam: PRESENT: appropriate affect, normal mood. ABSENT: homicidal ideation, suicidal ideation Skin exam: PRESENT: dry, intact, warm. ABSENT: cyanosis, rash Results Laboratory Results: 11/16/16 05:00 11/16/16 11/16/16 05:00 05:00 WBC 9.4 RBC 5.07 Hgb 17.3 H Hct 50.1 MCV 99 H MCH 34.0 H MCHC 34.5 RDW 13.9 Plt Count 231 Seg Neutrophils % 57.7 Lymphocytes % 30.9 Monocytes % 9.6 Eosinophils % 0.6 Basophils % 1.2 Absolute Neutrophils 5.4 Absolute Lymphocytes 2.9 Absolute Monocytes 0.9 Absolute Eosinophils 0.1 Absolute Basophils 0.1 Triglycerides 126 Cholesterol 166.11 LDL Cholesterol Direct 123 H VLDL Cholesterol 25.0 HDL Cholesterol 31 L 11/16/16 11/16/16 05:00 10:35 Troponin I < 0.012 < 0.012 Impressions: Chest X-Ray 11/15/16 21:53 IMPRESSION: NO ACUTE RADIOGRAPHIC FINDING IN THE CHEST. Head CT 11/15/16 21:53 IMPRESSION: NORMAL BRAIN CT WITHOUT CONTRAST. Head MRI 11/16/16 04:24 IMPRESSION: ATROPHY AND CHRONIC MICRO-VASCULAR ISCHEMIC CHANGES. There are several areas of restricted diffusion consistent with acute infarct in the right parietal lobe and occipital lobe and one small focal area of restricted diffusion in the right cerebellar hemisphere. EVIDENCE OF ACUTE STROKE: YES. RIGHT MCA Carotid Doppler Study 11/16/16 04:25 IMPRESSION: NO HEMODYNAMICALLY SIGNIFICANT STENOSIS. Assessment & Plan - Diagnosis (1) Stroke Qualifiers: CVA mechanism: unspecified Qualified Code(s): I63.9 - Cerebral infarction, unspecified Plan: MRI show acute cerebral infarcts of right middle cerebral artery. His symptoms have improved since admission. He has mild left sided weakness. (2) Left hemiparesis Is this a current diagnosis for this admission?: YesPlan: Improved from admission, 4/5 in muscle strength (3) HTN (hypertension) Qualifiers: Hypertension type: essential hypertension Qualified Code(s): I10 - Essential (primary) hypertension Is this a current diagnosis for this admission?: YesPlan: Will add low dose kraan and beta jai (4) Noncompliance Is this a current diagnosis for this admission?: YesPlan: Counseled (5) PVD (peripheral vascular disease) Is this a current diagnosis for this admission?: YesPlan: Continue aspirin and statin (6) Tobacco dependency Is this a current diagnosis for this admission?: YesPlan: Counseled. He has no intentions of quitting (7) Chronic combined systolic and diastolic CHF, NYHA class 3 Is this a current diagnosis for this admission?: YesPlan: Echo shows EF of 35%, grade II/IV diastolic heart failure. Will add low dose beta jai and karan inhibitor - Time Time Spent with patient: 25-34 minutes Critical Time spent with patient: 15-24 minutes Smoking Cessation Education: 3 to 10 minutes Medications reviewed and adjusted accordingly: Yes
[2016-11-16 19:37] LABS: APPEARANCE,URINE CLEAR; BILIRUBIN,URINE NEGATIVE (NEGATIVE); GLUCOSE, URINE NEGATIVE (NEGATIVE); KETONES,URINE NEGATIVE (NEGATIVE); LEUKOCYTE ESTERASE,URINE NEGATIVE (NEGATIVE); NITRITE,URINE NEGATIVE (NEGATIVE); PROTEIN,URINE NEGATIVE (NEGATIVE); URINE SPECIFIC GRAVITY 1.015; UROBILINOGEN,URINE NEGATIVE mg/dL (<2.0)
[2016-11-16] MEDS: CARVEDILOL 3.125 MG TABLET PO SCH (21:47)
[2016-11-17 09:13] VITALS: BP 135/81
[2016-11-17] MEDS ORDERED: LISINOPRIL 10 MG TABLET PO SCH (10:00)
[2016-11-17] MEDS: ATORVASTATIN CALCIUM 80 MG TABLET PO SCH (10:07)
[2016-11-17] MEDS: ASPIRIN 325 MG TABLET, ENT COATED PO SCH (10:07)
[2016-11-17] MEDS: CARVEDILOL 3.125 MG TABLET PO SCH (10:08)
[2016-11-17] MEDS: ENOXAPARIN SODIUM INJ 40 MG/0.4 ML DISP.SYRIN SUBCUT SCH (10:09)
[2016-11-17] MEDS: DOCUSATE SODIUM 100 MG CAPSULE PO SCH (10:09)
--- NOTE | 2016-11-17 15:18 | PDOC DISCHARGE SUMMARY ---
General - Admit/Disc Date/PCP Admission Date/Primary Care Provider: 11/16/16 04:20 Discharge Date: 11/17/16 - Discharge Diagnosis (1) Stroke Is this a current diagnosis for this admission?: YesSummary: MRI showed acute small infarcts in right parietal, occipital lobes with mild left extremities weakness. Patient refuses home health nursing and PT. He is agreeable to use walker. He will take statin and aspirin (2) Left hemiparesis Is this a current diagnosis for this admission?: YesSummary: Mild 4/5 muscle weakness on the left (3) HTN (hypertension) Is this a current diagnosis for this admission?: YesSummary: Patient placed on JENNIFER/Beta jai (4) Noncompliance Is this a current diagnosis for this admission?: YesSummary: Patient was counseled (5) PVD (peripheral vascular disease) Is this a current diagnosis for this admission?: YesSummary: Will begin aspirin and statin again (6) Tobacco dependency Is this a current diagnosis for this admission?: YesSummary: Counseled. He states he will try to quit (7) Chronic combined systolic and diastolic CHF, NYHA class 3 Is this a current diagnosis for this admission?: YesSummary: Patient is euvolemic at the present time - Additional Information Resuscitation Status: Full Code Discharge Diet: Cardiac Discharge Activity: Activity As Tolerated, Balance Activity w/Rest Home Medications: Acetaminophen [Tylenol 325 mg Tablet] 650 mg PO Q4HP PRN tablet 11/17/16 Aspirin [Aspirin 325 mg Tablet] 325 mg PO DAILY #30 tablet 11/17/16 Atorvastatin Calcium [Lipitor 40 mg Tablet] 40 mg PO QHS #30 tablet 11/17/16 Carvedilol [Coreg 6.25 mg Tablet] 6.25 mg PO Q12 #60 tablet 11/17/16 Lisinopril [Prinivil 10 mg Tablet] 10 mg PO DAILY #30 tablet 11/17/16 Walker [Folding Walker] 1 each ASDIR PRN #1 each 11/17/16 History of Present Illness Patient complains of: Left sided weakness History of Present Illness: JOSIAH TAMAYO is a 56 year old male with known peripheral vascular disease, having undergone a previous aortobifemoral bypass, hypertension, noncompliance, having been off all medications for some time now, chronic headaches, and half pack a day smoker who presents to the emergency room for evaluation of above complaints. Patient has been discussed with emergency room physician who evaluated the patient. Since the morning of the , patient is noted difficulty moving in controlling his left upper extremity. Gradually worsened throughout the day. At one point, could not open his left hand. Also is having difficulty expressing his thoughts, along with difficulty comprehending content on the television. No dysphagia, drooling, dysarthria, or any change in the chronic difficulty he has with his lower extremities. States that if he walks more than a few minutes , he not uncommonly will fall down, that his legs "give way." Recurrence of his typical headache. Denies any head trauma. No history of stroke, TIA, mini stroke, or seizure. No nausea vomiting, fever or chills, chest or abdominal pain.. Hospital Course Hospital Course: Patient was admitted to the [facility] on telemetry. His MENDS remained unchanged. MRI done the following more showed acute infarcts in right occipatal and parietal areas. His dyarthria improved. His left sided weakness improved to a mild 4/5 muscle strength deficit. He worked with PT and OT who felt patient could be discharged home with home health PT and nursing. Patient has refused this. He had transthoracic echo done which showed EF to be reduced to an EF of 35% with cardiomegaly and grade II/IV diastolic dysfunction. He did not want to undergo stress testing or any further cardiac workup. He states he will be compliant with medications. Physical Exam Vital Signs: Temp Pulse Resp BP Pulse Ox 97.9 F 82 19 135/81 H 95 11/17/16 11:19 11/17/16 11:19 11/17/16 11:19 11/17/16 11:19 11/17/16 11:19 Intake & Output 11/16/16 11/17/16 11/18/16 06:59 06:59 06:59 Intake Total 1958 Output Total 200 Balance 1758 General appearance: PRESENT: no acute distress, obese, well-developed, well- nourished Head exam: PRESENT: atraumatic, normocephalic Eye exam: PRESENT: conjunctiva pink, EOMI, PERRLA. ABSENT: scleral icterus Ear exam: PRESENT: normal external ear exam Mouth exam: PRESENT: moist, tongue midline Neck exam: ABSENT: carotid bruit, JVD, lymphadenopathy, thyromegaly Respiratory exam: PRESENT: clear to auscultation osvaldo, symmetrical, unlabored. ABSENT: rales, rhonchi, wheezes Cardiovascular exam: PRESENT: RRR. ABSENT: diastolic murmur, rubs, systolic murmur Pulses: PRESENT: normal dorsalis pedis pul Vascular exam: PRESENT: normal capillary refill GI/Abdominal exam: PRESENT: normal bowel sounds, soft. ABSENT: distended, guarding, mass, organolmegaly, rebound, tenderness Rectal exam: PRESENT: deferred Extremities exam: PRESENT: full ROM Musculoskeletal exam: PRESENT: ambulatory, full ROM, other - 4/5 muscle strenght in left sided extremities Neurological exam: PRESENT: alert, awake, oriented to person, oriented to place , oriented to time, oriented to situation, CN II-XII grossly intact Psychiatric exam: PRESENT: appropriate affect, normal mood. ABSENT: homicidal ideation, suicidal ideation Skin exam: PRESENT: dry, intact, warm. ABSENT: cyanosis, rash Results Laboratory Results: 11/16/16 05:00 11/16/16 19:10 Urine Color YELLOW Urine Appearance CLEAR Urine pH 6.0 Ur Specific Jermyn 1.015 Urine Protein NEGATIVE Urine Glucose (UA) NEGATIVE Urine Ketones NEGATIVE Urine Blood NEGATIVE Urine Nitrite NEGATIVE Ur Leukocyte Esterase NEGATIVE Urine WBC (Auto) 1 Urine RBC (Auto) 0 11/16/16 11/16/16 05:00 10:35 Troponin I < 0.012 < 0.012 Impressions: Chest X-Ray 11/15/16 21:53 IMPRESSION: NO ACUTE RADIOGRAPHIC FINDING IN THE CHEST. Head CT 11/15/16 21:53 IMPRESSION: NORMAL BRAIN CT WITHOUT CONTRAST. Head MRI 11/16/16 04:24 IMPRESSION: ATROPHY AND CHRONIC MICRO-VASCULAR ISCHEMIC CHANGES. There are several areas of restricted diffusion consistent with acute infarct in the right parietal lobe and occipital lobe and one small focal area of restricted diffusion in the right cerebellar hemisphere. EVIDENCE OF ACUTE STROKE: YES. RIGHT MCA Carotid Doppler Study 11/16/16 04:25 IMPRESSION: NO HEMODYNAMICALLY SIGNIFICANT STENOSIS. Qualifiers PATEINT BEING DISCHARGED WITH ANY OF THE FOLLOWING DIAGNOSIS?: Stroke VTE patient discharged on overlapping Therapy?: Yes Stroke Pt being discharged on Anti-thrombolytic therapy?: Yes Stroke Pt being discharged on Anti-coagulation therapy?: No Reason(s) for not prescribing Anti-coagulation therapy:: Not indicated Stroke Pt being discharged on Statins?: Yes Plan Discharge Plan: Home with a friend Time Spent: Less than 30 Minutes
== END 2016-11-17 11:35 | disposition home or self-care (01) ==
LOC: ER 21:00 → INTOOBSV 11-16 03:12 → UNDOADMOB 11-16 03:12 → EH 11-16 03:12 → 3W 11-16 05:51
PROVIDERS: ADMIT Family Medicine; ATTEND Family Medicine
PROC: HZ31ZZZ Individual Counseling for Substance Abuse Treatment, Behavioral (ICD-10-PCS; principal; 2016-11-15)
DX: I63.9 Cerebral infarction, unspecified (principal); G81.94 Hemiplegia, unspecified affecting left nondominant side; I69.322 Dysarthria following cerebral infarction; I73.9 Peripheral vascular disease, unspecified; I11.0 Hypertensive heart disease with heart failure; I50.42 Chronic combined systolic (congestive) and diastolic (congestive) heart failure; Z91.19 Patient's noncompliance with other medical treatment and regimen; F17.210 Nicotine dependence, cigarettes, uncomplicated; Z95.1 Presence of aortocoronary bypass graft; E66.9 Obesity, unspecified; Z68.31 Body mass index [BMI] 31.0-31.9, adult; R51 Headache; R94.31 Abnormal electrocardiogram [ECG] [EKG]
CPT/HCPCS: 99406; 93005; 99285; 36415 ×2; 82553; 82550; 83735; 84443; 85025 ×2; 85610; 85730; 80053; 81001; 84484 ×2; 80061; 93306; 93880; 70551; 71010; 70450; 93010; 97163; 92523; 97167; G0378 ×3; A9270 ×9; J1650; J3490; G8978; G8979; G9162; G9163; G9164; G8987; G8988

== ENCOUNTER 2018-05-25 13:27 | Emergency (ER) | payer MEDICARE ==
--- NOTE | 2018-05-25 13:57 | ER Document Report ---
ED Medical Screen (RME) - General Chief Complaint: Chest Pain Stated Complaint: CHEST PAIN Time Seen by Provider: 05/25/18 13:54 Mode of Arrival: Ambulatory Information source: Patient Notes: Patient is a 58-year-old male past medical history of stroke and hypertension who presents to the emergency department with chest pain that started last night. Patient reports the chest pain feels like a pressure across his chest. He has associated numbness and tingling to his bilateral arms and hands. He also has diaphoresis, nausea and vomiting. He is diaphoretic on arrival. Patient's blood pressure significantly elevated, patient states history of hypertension but he stopped taking his medication several years ago. Patient reports he had 3 or 4 aspirins today, unknown what dose. Will hold off on ordering aspirin. Patient is a smoker, drinks 3-4 times weekly, has history of hypertension, hyperlipidemia. Exam: Skin diaphoretic. Heart sounds S1-S2 present no ectopy noted. Lung sounds clear to auscultation bilaterally. I have greeted and performed a rapid initial assessment of this patient. A comprehensive ED assessment and evaluation of the patient, analysis of test results and completion of the medical decision making process will be conducted by additional ED providers. Dictation of this chart was performed using voice recognition software; therefore, there may be some unintended grammatical errors. TRAVEL OUTSIDE OF THE [place] IN LAST 30 DAYS: No - Related Data Allergies/Adverse Reactions: No Known Allergies Allergy (Verified 11/16/16 04:26) Past Medical History - Past Medical History Cardiac Medical History: Reports: Hx Hypertension, Hx Peripheral Vascular Disease Denies: Hx Atrial Fibrillation, Hx Congestive Heart Failure, Hx Coronary Artery Disease, Hx DVT, Hx Heart Attack, Hx Hypercholesterolemia, Hx Pulmonary Embolism Pulmonary Medical History: Denies: Hx Asthma, Hx COPD, Hx Sleep Apnea Neurological Medical History: Denies: Hx Seizures Endocrine Medical History: Denies: Hx Diabetes Mellitus Type 1, Hx Diabetes Mellitus Type 2, Hx Hyperthyroidism, Hx Hypothyroidism Renal/ Medical History: Denies: Hx Peritoneal Dialysis GI Medical History: Denies: Hx Cirrhosis, Hx Gastroesophageal Reflux Disease, Hx Hepatitis Musculoskeltal Medical History: Denies Hx Arthritis Psychiatric Medical History: Denies: Hx Depression Infectious Medical History: Denies: Hx C-Diff, Hx Hepatitis, Hx MRSA Past Surgical History: Reports: Hx Orthopedic Surgery - left knee 30 years ago, Hx Vascular Surgery - Aortobifemoral bypass - Immunizations Hx Diphtheria, Pertussis, Tetanus Vaccination: No
--- NOTE | 2018-05-25 14:30 | RADIOLOGY REPORT (SQ) ---
EXAM DESCRIPTION: CHEST SINGLE VIEW COMPLETED DATE/TIME: 05/25/2018 2:17 pm REASON FOR STUDY: chest pain COMPARISON: 07/25/2013 EXAM PARAMETERS: NUMBER OF VIEWS: One view. TECHNIQUE: Single frontal radiographic view of the chest acquired. RADIATION DOSE: NA LIMITATIONS: None. FINDINGS: LUNGS AND PLEURA: Few Ed lines at both lung bases, question mild interstitial edema. No perihilar pulmonary edema or pleural effusions. No pneumothorax. MEDIASTINUM AND HILAR STRUCTURES: No masses. Contour normal. HEART AND VASCULAR STRUCTURES: Mild cardiomegaly BONES: No acute findings. HARDWARE: None in the chest. OTHER: No other significant finding. IMPRESSION: Mild cardiomegaly with few Ed lines at the right lung base, question fluid overload TECHNICAL DOCUMENTATION: JOB ID: [id number] [employer]- All Rights Reserved Reading location - IP/workstation name: [email or web address]
[2018-05-25 16:28] LABS: ABSOLUTE MONOCYTES (AUTO) 0.6 10^3/uL (0.1-1.4); ABSOLUTE NEUT (AUTO) 6.7 10^3/uL (1.7-8.2); BASOPHILS % (AUTO) 0.5 % (0-2); EOSINOPHILS % (AUTO) 0.1 % (0-6); HEMATOCRIT 49.7 % (37.9-51.0); HEMOGLOBIN 17.4 g/dL (13.5-17.0); LYMPHOCYTES % (AUTO) 21.8 % (13-45); MEAN CORPUSCULAR HEMOGLOBIN 38.8 pg (27.0-33.4); MEAN CORPUSCULAR HGB CONC 35.1 g/dL (32.0-36.0); MONOCYTES % (AUTO) 6.2 % (3-13); RED BLOOD COUNT 4.48 10^6/uL (4.35-5.55); SEGMENTED NEUTROPHILS % (AUTO) 71.4 % (42-78); TOTAL CELLS COUNTED % (AUTO) 100 %; WHITE BLOOD COUNT 9.3 10^3/uL (4.0-10.5)
[2018-05-25 16:30] LABS: ALANINE AMINOTRANSFERASE 14 U/L (21-72); ALBUMIN 4.4 g/dL (3.5-5.0); ALKALINE PHOSPHATASE 100 U/L (38-126); ANION GAP 11 (5-19); ASPARTATE AMINO TRANSFERASE 57 U/L (17-59); BILIRUBIN,DIRECT 0.6 mg/dL (0.0-0.4); BILIRUBIN,TOTAL 1.5 mg/dL (0.2-1.3); BLOOD UREA NITROGEN 9 mg/dL (7-20); CALCIUM 8.6 mg/dL (8.4-10.2); CARBON DIOXIDE 28 mmol/L (22-30); CHLORIDE 102 mmol/L (98-107); CREATINE KINASE 354 U/L (55-170); GLUCOSE 106 mg/dL (75-110); POTASSIUM 3.8 mmol/L (3.6-5.0); SODIUM 140.9 mmol/L (137-145); TOTAL PROTEIN 8.2 g/dL (6.3-8.2)
[2018-05-25 16:48] LABS: CREATINE KINASE MB 3.59 ng/mL (<4.55)
[2018-05-25 16:58] LABS: TROPONIN I 0.243 ng/mL
[2018-05-25 17:03] LABS: ANISOCYTOSIS 1+; PLATELET CLUMPS PRESENT; PLATELET LARGE PRESENT
[2018-05-25 17:04] LABS: MEAN CORPUSCULAR VOLUME 111 fl (80-97); PLATELET COMMENT ADEQUATE; PLATELET COUNT 264 10^3/uL (150-450)
--- NOTE | 2018-05-25 19:06 | ER Document Report ---
ED General - General Chief Complaint: Chest Pain Stated Complaint: CHEST PAIN Time Seen by Provider: 05/25/18 13:54 Mode of Arrival: Ambulatory Information source: Patient, [facility] Records Notes: 58-year-old male with hypertension, peripheral vascular disease, remote history of CVA presents with plan of chest pain that started 1 day prior to arrival while at rest. Patient states his pain is located across his chest and he describes it as a intermittent pressure-like pain. Patient has had associated nausea, diaphoresis and shortness of breath. Patient reports that he has been vomiting continuously for 2 days. He does continue to smoke 5-6 cigarettes/day. He states that he drinks daily to help with his neuropathy. Patient discontinued his blood thinning medication and blood pressure medications 2 years ago because he states they made him "not feel right". Patient is unsure whether he has ever had a stress test. He does report a femoral bypass that was performed 5 years ago in [place]. Patient is currently chest pain-free. TRAVEL OUTSIDE OF THE [place] IN LAST 30 DAYS: No - HPI Onset: Yesterday Onset/Duration: Sudden, Intermittent Quality of pain: Pressure Severity: Mild Associated symptoms: Chest pain, Nausea, Vomiting, Shortness of breath, Sweating. denies: Fever, Headache Exacerbated by: Denies Relieved by: Denies Similar symptoms previously: No Recently seen / treated by doctor: No - Related Data Allergies/Adverse Reactions: No Known Allergies Allergy (Verified 05/25/18 14:01) Past Medical History - General Information source: Patient - Social History Smoking Status: Current Every Day Smoker Cigarette use (# per day): Yes - 5 Smoking Education Provided: Yes - Smoking cessation counseling was provided for 4 minutes at the bedside Frequency of alcohol use: Social Drug Abuse: None Lives with: Alone Family History: Reviewed & Not Pertinent Patient has suicidal ideation: No Patient has homicidal ideation: No - Past Medical History Cardiac Medical History: Reports: Hx Hypertension, Hx Peripheral Vascular Disease Denies: Hx Atrial Fibrillation, Hx Congestive Heart Failure, Hx Coronary Artery Disease, Hx DVT, Hx Heart Attack, Hx Hypercholesterolemia, Hx Pulmonary Embolism Pulmonary Medical History: Denies: Hx Asthma, Hx COPD, Hx Sleep Apnea Neurological Medical History: Denies: Hx Seizures Endocrine Medical History: Denies: Hx Diabetes Mellitus Type 1, Hx Diabetes Mellitus Type 2, Hx Hyperthyroidism, Hx Hypothyroidism Renal/ Medical History: Denies: Hx Peritoneal Dialysis GI Medical History: Denies: Hx Cirrhosis, Hx Gastroesophageal Reflux Disease, Hx Hepatitis Musculoskeletal Medical History: Denies Hx Arthritis Psychiatric Medical History: Denies: Hx Depression Infectious Medical History: Denies: Hx C-Diff, Hx Hepatitis, Hx MRSA Past Surgical History: Reports: Hx Orthopedic Surgery - left knee 30 years ago, Hx Vascular Surgery - Aortobifemoral bypass - Immunizations Hx Diphtheria, Pertussis, Tetanus Vaccination: No Review of Systems - Review of Systems Notes: REVIEW OF SYSTEMS: CONSTITUTIONAL : Denies fever, chills. Denies recent illness. Denies weight loss, recent hospitalizations. EENT: Denies visual changes, eye pain. Denies sore throat, oral lesions, difficulty swallowing. CARDIOVASCULAR: Denies palpitations. Denies lower extremity edema. RESPIRATORY: Denies cough. Denies wheezing. GASTROINTESTINAL: Denies abdominal pain or distention. Denies diarrhea. Denies blood in vomitus, stools, or per rectum. Denies black, tarry stools. Denies constipation. GENITOURINARY: Denies difficulty urinating, painful urination, frequency, blood in urine, testicular pain or penile discharge. MUSCULOSKELETAL: Denies back or neck pain or stiffness. Denies joint pain or swelling. SKIN: Denies rash, lesions or sores. HEMATOLOGIC : Denies easy bruising or bleeding. LYMPHATIC: Denies swollen glands. NEUROLOGICAL: Denies confusion or altered mental status. Denies loss of consciousness. Denies dizziness or lightheadedness. Denies headache. Denies weakness or paralysis. Denies problems difficulty with ambulation, slurred speech. Denies sensory loss, numbness, or tingling. Denies seizures. PSYCHIATRIC: Denies anxiety or stress. Denies depression, suicidal ideation, or Physical Exam - Vital signs Vitals: Temp Pulse Resp BP Pulse Ox 98.1 F 100 22 H 187/98 H 99 05/25/18 14:00 05/25/18 14:00 05/25/18 14:05/25/18 14:05/25/18 14:00 - Notes Notes: PHYSICAL EXAMINATION: GENERAL: Well-appearing, well-nourished and in no acute distress. HEAD: Atraumatic, normocephalic. EYES: Pupils equal round and reactive to light, extraocular movements intact, sclera anicteric, conjunctiva are normal. ENT: Nares patent, oropharynx clear without exudates. Moist mucous membranes. NECK: Normal range of motion, supple without lymphadenopathy LUNGS: Breath sounds clear to auscultation bilaterally and equal. No wheezes rales or rhonchi. HEART: Regular rate and rhythm without murmurs ABDOMEN: Soft, nontender, nondistended abdomen. No guarding, no rebound. No masses appreciated. Musculoskeletal: Normal range of motion, no pitting or edema. No cyanosis. NEUROLOGICAL: Cranial nerves grossly intact. Normal speech, normal gait. Normal sensory, motor exams PSYCH: Normal mood, normal affect. SKIN: Warm, Dry, normal turgor, no rashes or lesions noted. Course - Re-evaluation Re-evalutation: Laboratory 05/25/18 05/25/18 05/25/18 15:50 15:50 15:50 WBC 9.3 RBC 4.48 Hgb 17.4 H Hct 49.7 MCV 111 H MCH 38.8 H MCHC 35.1 RDW 17.0 H Plt Count 264 Seg Neutrophils % 71.4 Lymphocytes % 21.8 Monocytes % 6.2 Eosinophils % 0.1 Basophils % 0.5 Absolute Neutrophils 6.7 Absolute Lymphocytes 2.0 Absolute Monocytes 0.6 Absolute Eosinophils 0.0 Absolute Basophils 0.0 Clumped Platelets PRESENT Large Platelets PRESENT Platelet Comment ADEQUATE Anisocytosis 1+ Macrocytosis 3+ Sodium 140.9 Potassium 3.8 Chloride 102 Carbon Dioxide 28 Anion Gap 11 BUN 9 Creatinine 0.73 Est GFR ( Amer) > 60 Est GFR (Non-Af Amer) > 60 Glucose 106 Calcium 8.6 Total Bilirubin 1.5 H Direct Bilirubin 0.6 H Neonat Total Bilirubin Not Reportable Neonat Direct Bilirubin Not Reportable Neonat Indirect Bili Not Reportable AST 57 ALT 14 L Alkaline Phosphatase 100 Creatine Kinase 354 H CK-MB (CK-2) 3.59 Troponin I 0.243 Total Protein 8.2 Albumin 4.4 05/25/18 18:02 WBC RBC Hgb Hct MCV MCH MCHC RDW Plt Count Seg Neutrophils % Lymphocytes % Monocytes % Eosinophils % Basophils % Absolute Neutrophils Absolute Lymphocytes Absolute Monocytes Absolute Eosinophils Absolute Basophils Clumped Platelets Large Platelets Platelet Comment Anisocytosis Macrocytosis Sodium Potassium Chloride Carbon Dioxide Anion Gap BUN Creatinine Est GFR ( Amer) Est GFR (Non-Af Amer) Glucose Calcium Total Bilirubin Direct Bilirubin Neonat Total Bilirubin Neonat Direct Bilirubin Neonat Indirect Bili AST ALT Alkaline Phosphatase Creatine Kinase CK-MB (CK-2) Troponin I 0.226 Total Protein Albumin Chest X-Ray 05/25/18 13:55 IMPRESSION: Mild cardiomegaly with few Ed lines at the right lung base, question fluid overload Temp Pulse Resp BP Pulse Ox 98.5 F 100 16 146/75 H 98 05/25/18 20:00 05/25/18 14:00 05/25/18 19:02 05/25/18 19:02 05/25/18 19:02 58-year-old male presents with complaint of chest pain that started yesterday evening. Reports associated diaphoresis, nausea, vomiting, shortness of breath. Does have a significant history for peripheral vascular disease requiring a femoral bypass. He does have a significant smoking history as well. Cardiac enzymes were obtained and showed an elevation in troponin of 0.234. Patient is currently pain-free upon my exam. Lovenox was administered and patient did receive aspirin. He is declining any pain medication at this time. Vital signs within normal limits. EKG was obtained which showed the patient to be in sinus tachycardia cardia at a rate of 103. QTc 477. Q waves are seen in the anterior leads. Patient administered morphine, Zofran after he reported recurrence of pain. Repeat EKG was obtained and now shows PVCs. No ST elevation. 05/25/18 20:[address] Byrd on-call for cardiology and he believes the patient will require cardiac cath and likely stent placement due to patient's history. He recommends transfer. Patient is agreeable with transfer. Patient placed on the wait list at [facility]. They currently have no beds. 05/25/18 20:20 [facility] also contacted for transfer. They report a bed wait for at least 48 hours on regional diversion. 05/25/18 20:24 05/25/18 20:26 [facility] contacted for transfer. They state that they are on pre-regional diversion and reports a greater than 24-hour weight for transfers. 05/25/18 20:46 Spoke with from [facility] who recommends that if the patient has recurrent chest pain that he be loaded with 300 mg of Plavix and then 75 mg daily. Patient has been accepted and has been placed on the waiting list. 05/25/18 22:15 Bedside ultrasound was performed and showed no pericardial effusion. Poor contractility. There is no collapse of the right ventricle or right atrium. He does have significant B-lines consistent with interstitial edema. Patient will be given 20 mg of Lasix IV. 05/25/18 22:[address] Crawford from [facility] who has accepted the patient. Informed that truck will be here within the hour. 05/25/18 22:20 Upon review of patient's medical records echocardiogram performed in November 2016 showed an EF of 35%. BNP pending. 05/25/18 23:31 Patient was reevaluated upon transfer team arrival. Vital signs stable. Patient is chest pain-free and stable for transfer. 05/26/18 02:16 - Vital Signs Vital signs: Temp Pulse Resp BP Pulse Ox 98.5 F 98 19 152/94 H 97 05/25/18 23:01 05/25/18 22:15 05/25/18 23:01 05/25/18 23:01 05/25/18 23:01 - Laboratory Result Diagrams: 05/25/18 15:50 05/25/18 15:50 Laboratory results interpreted by me: 05/25/18 05/25/18 05/25/18 15:50 15:50 21:40 Hgb 17.4 H MCV 111 H MCH 38.8 H RDW 17.0 H Total Bilirubin 1.5 H Direct Bilirubin 0.6 H ALT 14 L Creatine Kinase 354 H NT-Pro-B Natriuret Pep 1670 H - Diagnostic Test Radiology reviewed: Image reviewed, Reports reviewed - EKG Interpretation by Me EKG shows normal: Sinus rhythm Rate: Normal Rhythm: PVC's - QTC 488. When compared to previous EKG there are: Previous EKG unavailable Critical Care Note - Critical Care Note Total time excluding time spent on procedures (mins): 40 - Minutes of critical care time spent in direct contact evaluating and reevaluating the patient, treating symptoms, reviewing labs and studies and speaking with family and consultants excluding any procedures Discharge - Discharge Clinical Impression: Tobacco dependency, PVD (peripheral vascular disease), Non-STEMI (non-ST elevated myocardial infarction) HTN (hypertension) Qualifiers: Hypertension type: unspecified Qualified Code(s): I10 - Essential (primary) hypertension Combined systolic and diastolic congestive heart failure Qualifiers: Heart failure chronicity: unspecified Qualified Code(s): I50.40 - Unspecified combined systolic (congestive) and diastolic (congestive) heart failure Condition: Fair Disposition: [facility]
[2018-05-25] MEDS: ENOXAPARIN SODIUM INJ 100 MG/1 ML DISP.SYRIN SUBCUT SCH ×2 (19:15→22:33)
[2018-05-25] MEDS ORDERED: MORPHINE SULFATE 10 MG/ML INJ IV ONE (22:06)
[2018-05-25] MEDS ORDERED: ONDANSETRON HCL INJ/PF 4 MG/2 ML SDV IV ONE (22:08)
[2018-05-25] MEDS ORDERED: FUROSEMIDE INJ/PF 20 MG/2 ML SDV IV ONE (22:16)
[2018-05-25 23:43] VITALS: BP 152/94
--- NOTE | 2018-05-26 12:55 | EKG REPORT ---
SEVERITY:- ABNORMAL ECG - SINUS RHYTHM VENTRICULAR PREMATURE COMPLEX PROBABLE LEFT ATRIAL ABNORMALITY NONSPECIFIC T ABNORMALITIES, LATERAL LEADS BORDERLINE PROLONGED QT INTERVAL : Confirmed by: Elida Hayden 26-May-2018 12:54:48
--- NOTE | 2018-05-26 12:56 | EKG REPORT ---
SEVERITY:- ABNORMAL ECG - SINUS TACHYCARDIA PROBABLE LEFT ATRIAL ABNORMALITY LOW VOLTAGE THROUGHOUT CONSIDER ANTEROSEPTAL INFARCT NONSPECIFIC T ABNORMALITIES, LATERAL LEADS BORDERLINE PROLONGED QT INTERVAL : Confirmed by: Elida Hayden 26-May-2018 12:55:07
[2018-05-26 13:00] LABS: PATH REVIEW PATHOLOGIST REVIEWED
== END 2018-05-25 23:43 | disposition short-term general hospital (02) ==
LOC: ER 13:27
DX: I21.4 Non-ST elevation (NSTEMI) myocardial infarction (principal); I73.9 Peripheral vascular disease, unspecified; I10 Essential (primary) hypertension; R07.9 Chest pain, unspecified; I50.40 Unspecified combined systolic (congestive) and diastolic (congestive) heart failure; F17.210 Nicotine dependence, cigarettes, uncomplicated; Z86.73 Personal history of transient ischemic attack (TIA), and cerebral infarction without residual deficits; Z95.1 Presence of aortocoronary bypass graft
CPT/HCPCS: 93005; 99406; 99291; 96372; 96374; 96375; 36415; 82553; 82550; 85025; 80053; 84484; 83880; 71045; 93010; J1940; J2270; J2405; J1650

== ENCOUNTER 2018-08-28 17:18 | Inpatient (IN) | payer MEDICARE ==
--- NOTE | 2018-08-28 18:47 | ER Document Report ---
ED Medical Screen (RME) - General Chief Complaint: Chest Pain Stated Complaint: CHEST PAIN Time Seen by Provider: 08/28/18 18:37 Mode of Arrival: Ambulatory Information source: Patient Notes: 58-year-old male presented to ED for chest pain for a while now worse over the last couple days. He states he was seen about 3 months ago was told he had a [place] took him to another hospital where they wanted to do surgery and he did not want to do surgery he wanted let the medicine work first. He states he was better for about a month and then it got much worse. He does have a history of IL x2 stroke with weakness to the right high blood pressure coronary artery disease cholesterol peripheral vascular disease. He has had a vascular surgery to the left leg. He smokes 3 to 4 cigarettes a day drinks 1 to 2 ounces a day does not do drugs or work and lives alone with his dog. Patient states he really thinks he is having a heart attack now that it feels just like he did when he had the first heart attack. I have greeted and performed a rapid initial assessment of this patient. A comprehensive ED assessment and evaluation of the patient, analysis of test results and completion of medical decision making process will be conducted by an additional ED providers. Dictation of this chart was performed using voice recognition software; therefore, there may be some unintended grammatical errors. TRAVEL OUTSIDE OF THE [place] IN LAST 30 DAYS: No - Related Data Allergies/Adverse Reactions: No Known Allergies Allergy (Verified 05/25/18 14:01) Past Medical History - Past Medical History Cardiac Medical History: Reports: Hx Hypertension, Hx Peripheral Vascular Disease Denies: Hx Atrial Fibrillation, Hx Congestive Heart Failure, Hx Coronary Artery Disease, Hx DVT, Hx Heart Attack, Hx Hypercholesterolemia, Hx Pulmonary Embolism Pulmonary Medical History: Denies: Hx Asthma, Hx COPD, Hx Sleep Apnea Neurological Medical History: Denies: Hx Seizures Endocrine Medical History: Denies: Hx Diabetes Mellitus Type 1, Hx Diabetes Mellitus Type 2, Hx Hyperthyroidism, Hx Hypothyroidism Renal/ Medical History: Denies: Hx Peritoneal Dialysis GI Medical History: Denies: Hx Cirrhosis, Hx Gastroesophageal Reflux Disease, Hx Hepatitis Musculoskeltal Medical History: Denies Hx Arthritis Psychiatric Medical History: Denies: Hx Depression Infectious Medical History: Denies: Hx C-Diff, Hx Hepatitis, Hx MRSA Past Surgical History: Reports: Hx Orthopedic Surgery - left knee 30 years ago, Hx Vascular Surgery - Aortobifemoral bypass - Immunizations Hx Diphtheria, Pertussis, Tetanus Vaccination: No Physical Exam - Vital signs Vitals: Temp Pulse Resp BP Pulse Ox 98.1 F 103 H 20 154/111 H 96 08/28/18 17:33 08/28/18 17:33 08/28/18 17:33 08/28/18 17:33 08/28/18 17:33 Course - Vital Signs Vital signs: Temp Pulse Resp BP Pulse Ox 98.1 F 103 H 20 154/111 H 96 08/28/18 17:33 08/28/18 17:33 08/28/18 17:33 08/28/18 17:33 08/28/18 17:33
--- NOTE | 2018-08-28 18:57 | EKG REPORT ---
SEVERITY:- ABNORMAL ECG - SINUS RHYTHM PROBABLE LEFT ATRIAL ABNORMALITY LATERAL INFARCT, AGE INDETERMINATE , SINCE 05/25/18. OLD ANTERIOR IL : Confirmed by: Sloan Kessler MD 28-Aug-2018 18:56:48
[2018-08-28 19:22] LABS: ABSOLUTE BASOPHILS # (AUTO) 0.1 10^3/uL (0.0-0.2); ABSOLUTE LYMPHOCYTES (AUTO) 1.8 10^3/uL (0.5-4.7); ABSOLUTE MONOCYTES (AUTO) 0.6 10^3/uL (0.1-1.4); ABSOLUTE NEUT (AUTO) 5.2 10^3/uL (1.7-8.2); EOSINOPHILS % (AUTO) 0.3 % (0-6); HEMATOCRIT 49.2 % (37.9-51.0); LYMPHOCYTES % (AUTO) 23.5 % (13-45); MEAN CORPUSCULAR HEMOGLOBIN 33.5 pg (27.0-33.4); MEAN CORPUSCULAR HGB CONC 32.5 g/dL (32.0-36.0); MEAN CORPUSCULAR VOLUME 103 fl (80-97); MONOCYTES % (AUTO) 7.9 % (3-13); PLATELET COUNT 263 10^3/uL (150-450); RED BLOOD COUNT 4.77 10^6/uL (4.35-5.55); RED CELL DISTRIBUTION WIDTH 15.6 % (11.5-14.0); SEGMENTED NEUTROPHILS % (AUTO) 67.3 % (42-78); TOTAL CELLS COUNTED % (AUTO) 100 %; WHITE BLOOD COUNT 7.7 10^3/uL (4.0-10.5)
[2018-08-28 19:24] LABS: APPEARANCE,URINE CLEAR; BILIRUBIN,URINE NEGATIVE (NEGATIVE); COLOR,URINE YELLOW; GLUCOSE, URINE NEGATIVE (NEGATIVE); KETONES,URINE NEGATIVE (NEGATIVE); LEUKOCYTE ESTERASE,URINE NEGATIVE (NEGATIVE); NITRITE,URINE NEGATIVE (NEGATIVE); PROTEIN,URINE 100 mg/dL (NEGATIVE); URINE SPECIFIC GRAVITY 1.006; UROBILINOGEN,URINE NEGATIVE mg/dL (<2.0)
[2018-08-28 19:33] LABS: ALANINE AMINOTRANSFERASE 31 U/L (21-72); ALBUMIN 3.3 g/dL (3.5-5.0); ALKALINE PHOSPHATASE 111 U/L (38-126); ANION GAP 8 (5-19); ASPARTATE AMINO TRANSFERASE 27 U/L (17-59); BILIRUBIN,DIRECT 0.7 mg/dL (0.0-0.4); BILIRUBIN,TOTAL 1.5 mg/dL (0.2-1.3); BLOOD UREA NITROGEN 10 mg/dL (7-20); CALCIUM 8.7 mg/dL (8.4-10.2); CARBON DIOXIDE 28 mmol/L (22-30); CHLORIDE 103 mmol/L (98-107); GLUCOSE 108 mg/dL (75-110); POTASSIUM 4.5 mmol/L (3.6-5.0); SODIUM 139.4 mmol/L (137-145); TOTAL PROTEIN 7.1 g/dL (6.3-8.2)
[2018-08-28 19:45] LABS: CREATINE KINASE MB 2.81 ng/mL (<4.55); TROPONIN I 0.021 ng/mL
--- NOTE | 2018-08-28 19:53 | RADIOLOGY REPORT (SQ) ---
EXAM DESCRIPTION: CHEST 2 VIEWS COMPLETED DATE/TIME: 08/28/2018 7:18 pm REASON FOR STUDY: chest pain pedal edema COMPARISON: 05/25/2018. EXAM PARAMETERS: NUMBER OF VIEWS: two views TECHNIQUE: Digital Frontal and Lateral radiographic views of the chest acquired. RADIATION DOSE: NA LIMITATIONS: none FINDINGS: LUNGS AND PLEURA: Moderate right pleural effusion with right basilar density. Left lung r elatively clear. MEDIASTINUM AND HILAR STRUCTURES: No masses or contour abnormalities. HEART AND VASCULAR STRUCTURES: Borderline cardiomegaly. Mild vascular congestion. BONES: No acute findings. HARDWARE: None in the chest. OTHER: No other significant finding. IMPRESSION: BORDERLINE CARDIOMEGALY WITH MILD VASCULAR CONGESTION. INTERVAL DEVELOPMENT OF MODERATE RIGHT PLEURAL EFFUSION. TECHNICAL DOCUMENTATION: JOB ID: [id number] [employer]- All Rights Reserved Reading location - IP/workstation name: [email or web address]
[2018-08-28] MEDS ORDERED: FUROSEMIDE INJ/PF 20 MG/2 ML SDV IV ONE (21:39)
--- NOTE | 2018-08-28 21:42 | ER Document Report ---
ED General - General Chief Complaint: Chest Pain Stated Complaint: CHEST PAIN Time Seen by Provider: 08/28/18 18:37 Mode of Arrival: Ambulatory Notes: Patient is a 58-year-old male with past medical history of coronary artery disease, hypertension, current everyday tobacco user, alcohol abuse, presents complaining of several weeks of progressively worsening chest pain and shortness of breath. States the chest pain is a pressure-like sensation in the left chest without radiation. States the pain comes and goes without obvious trigger. No relieving factor. Regards it is being moderate in severity. The patient's main concern is his shortness of breath which he states has become much more pronounced in the past several weeks. Notes that this is dramatically worse when he lies flat. Denies exertional worsening. States when he sits up and takes deep breath it seems to improve. Denies fever or constitutional symptoms. 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 Has also noted increasing swelling to his bilateral lower extremities. TRAVEL OUTSIDE OF THE [place] IN LAST 30 DAYS: No - Related Data Allergies/Adverse Reactions: No Known Allergies Allergy (Verified 08/28/18 22:18) Past Medical History - General Information source: Patient - Social History Smoking Status: Current Every Day Smoker Frequency of alcohol use: None Drug Abuse: None Lives with: Alone Family History: Reviewed & Not Pertinent Patient has suicidal ideation: No Patient has homicidal ideation: No - Past Medical History Cardiac Medical History: Reports: Hx Hypertension, Hx Peripheral Vascular Disease Denies: Hx Atrial Fibrillation, Hx Congestive Heart Failure, Hx Coronary Artery Disease, Hx DVT, Hx Heart Attack, Hx Hypercholesterolemia, Hx Pulmonary Embolism Pulmonary Medical History: Denies: Hx Asthma, Hx COPD, Hx Sleep Apnea Neurological Medical History: Denies: Hx Seizures Endocrine Medical History: Denies: Hx Diabetes Mellitus Type 1, Hx Diabetes Mellitus Type 2, Hx Hyperthyroidism, Hx Hypothyroidism Renal/ Medical History: Denies: Hx Peritoneal Dialysis GI Medical History: Denies: Hx Cirrhosis, Hx Gastroesophageal Reflux Disease, Hx Hepatitis Musculoskeletal Medical History: Denies Hx Arthritis Psychiatric Medical History: Denies: Hx Depression Infectious Medical History: Denies: Hx C-Diff, Hx Hepatitis, Hx MRSA Past Surgical History: Reports: Hx Orthopedic Surgery - left knee 30 years ago, Hx Vascular Surgery - Aortobifemoral bypass - Immunizations Hx Diphtheria, Pertussis, Tetanus Vaccination: No Review of Systems - Review of Systems Notes: Constitutional: Negative for fever. HENT: Negative for sore throat. Eyes: Negative for visual changes. Cardiovascular: Positive for chest pain. Respiratory: Positive for shortness of breath. Gastrointestinal: Negative for abdominal pain, vomiting or diarrhea. Genitourinary: Negative for dysuria. Musculoskeletal: Positive for bilateral lower extremity edema Skin: Negative for rash. Neurological: Negative for headaches, weakness or numbness. 10 point ROS negative except as marked above and in HPI. Physical Exam - Vital signs Vitals: Temp Pulse Resp BP Pulse Ox 98.1 F 103 H 20 154/111 H 96 08/28/18 17:33 08/28/18 17:33 08/28/18 17:33 08/28/18 17:33 08/28/18 17:33 Interpretation: Hypertensive, Tachycardic Notes: PHYSICAL EXAMINATION: GENERAL: Appears much older than stated age, in no acute distress HEAD: Atraumatic, normocephalic. EYES: Pupils equal round and reactive to light, extraocular movements intact, sclera anicteric, conjunctiva are normal. ENT: nares patent, oropharynx clear without exudates. Moist mucous membranes. NECK: Normal range of motion, supple without lymphadenopathy LUNGS: Mild tachypnea, rales at the bases bilaterally HEART: Regular rate and rhythm without murmurs ABDOMEN: Soft, nontender, normoactive bowel sounds. No guarding, no rebound. No masses appreciated. EXTREMITIES: Normal range of motion, 3+ pitting edema in the bilateral lower extremities that is equal and symmetric to the mid thigh bilaterally NEUROLOGICAL: No focal neurological deficits. Moves all extremities spontaneously and on command. PSYCH: Normal mood, normal affect. SKIN: Warm, Dry, normal turgor, no rashes or lesions noted. Course - Re-evaluation Re-evalutation: 08/28/18 21:40 Patient presents with intermittent chest pain increasing in frequency over the last several weeks now with much worsened shortness of breath as well as orthopnea. On exam the patient has visible orthopnea, is quite short of breath when he is lying flat when I first walked into the room. He was also moderately hypoxic when lying flat had to 89% which improved when he sat up. The patient was initially quite tachypneic after sitting up which did improve as he sat there throughout the course of the HPI. The patient does have 3-4+ pitting edema to the mid thighs bilaterally and has rales on respiratory exam. Chest x- ray does show cardiomegaly and trace pulmonary edema. BNP is 9900 much higher than when he was here earlier this year. The patient has a normal troponin at 0.021 and is currently chest pain-free. I think the patient does require hospitalization for IV diuresis given his degree of extremity edema, orthopnea and pulmonary edema. Given that he is not actively having chest pain, negative troponin I do not think he would warrant transfer at this time despite the fact that he was informed he had a 70% occlusion of an unidentified vessel that would be amenable to stent placement. I have discussed with Dr. Castelan who is agreeing to admit the patient so long as the repeat troponin remains normal - Vital Signs Vital signs: Temp Pulse Resp BP Pulse Ox 98.4 F 93 16 135/78 H 99 08/29/18 01:32 08/29/18 01:32 08/29/18 01:32 08/29/18 01:32 08/29/18 01:32 - Laboratory Result Diagrams: 08/29/18 02:50 08/29/18 02:50 Laboratory results interpreted by me: 08/28/18 08/28/18 08/28/18 19:00 19:05 19:05 MCV 103 H MCH 33.5 H RDW 15.6 H Total Bilirubin 1.5 H Direct Bilirubin 0.7 H NT-Pro-B Natriuret Pep Albumin 3.3 L Urine Protein 100 H Urine Blood SMALL H 08/28/18 19:05 MCV MCH RDW Total Bilirubin Direct Bilirubin NT-Pro-B Natriuret Pep 9980 H Albumin Urine Protein Urine Blood - Diagnostic Test Radiology reviewed: Image reviewed, Reports reviewed Radiology results interpreted by me: 08/28/18 21:46 Chest x-ray: Cardiomegaly, pulmonary vascular congestion and trace pulmonary e sharda - EKG Interpretation by Me Additional EKG results interpreted by me: 08/28/18 21:46 Sinus rhythm, rate 99. T wave flattening in the lateral leads. No ST elevations or depressions. QTC is 473. Discharge - Discharge Clinical Impression: Tobacco dependency, Orthopnea, Shortness of breath Chest pain Qualifiers: Chest pain type: unspecified Qualified Code(s): R07.9 - Chest pain, unspecified HTN (hypertension) Qualifiers: Hypertension type: unspecified Qualified Code(s): I10 - Essential (primary) hypertension Acute on chronic congestive heart failure Qualifiers: Heart failure type: unspecified Qualified Code(s): I50.9 - Heart failure, unspecified Condition: Fair Disposition: ADMITTED INPATIENT Admitting Provider: Flip (Hospitalist) Unit Admitted: Telemetry
[2018-08-28] MEDS ORDERED: ACETAMINOPHEN 325 MG TABLET PO PRN (21:58)
[2018-08-28] MEDS ORDERED: MAG HYDROX/AL HYDROX/SIMETH SUSP 30 ML UDCUP PO PRN (22:00)
[2018-08-28] MEDS ORDERED: MAGNESIUM HYDROXIDE SUSP 30 ML UDCUP PO PRN (22:00)
[2018-08-28 22:36] LABS: ABSOLUTE RETICS # 0.061 10^6/uL (0.028-0.122); RETICULOCYTE COUNT (AUTO) 1.32 % (0.66-2.85)
[2018-08-28 23:43] LABS: FOLATE 6.91 ng/mL (>2.76)
[2018-08-29] MEDS: POTASSIUM CHLORIDE 10 MEQ CAPSULE.ER PO SCH ×3 (00:03→21:51)
[2018-08-29] MEDS: CARVEDILOL 6.25 MG TABLET PO SCH ×3 (00:04→21:52)
[2018-08-29] MEDS: THIAMINE HCL 100 MG TABLET PO SCH ×2 (00:04→10:56)
[2018-08-29] MEDS: LISINOPRIL 10 MG TABLET PO SCH ×2 (00:04→10:53)
[2018-08-29] MEDS: ATORVASTATIN CALCIUM 40 MG TABLET PO SCH ×2 (00:05→21:52)
[2018-08-29] MEDS: FOLIC ACID 1 MG TABLET PO SCH ×2 (00:06→10:51)
[2018-08-29] MEDS: NITROGLYCERIN 5 MG (0.2 MG/HR) PATCH.TD24 TD SCH ×2 (00:06→10:53)
[2018-08-29] MEDS: HEPARIN SOD (PORCINE) 5,000 UNIT/ML 1 ML SYRINGE SUBCUT SCH ×4 (00:09→21:50)
[2018-08-29] MEDS: FUROSEMIDE INJ/PF 20 MG/2 ML SDV IV SCH ×3 (00:12→21:51)
[2018-08-29] MEDS ORDERED: CYANOCOBALAMIN (VITAMIN B-12) 1,000 MCG TABLET ONE ×2 (00:26→01:05)
[2018-08-29] MEDS: CYANOCOBALAMIN (VITAMIN B-12) 1,000 MCG TABLET PO SCH ×2 (01:03→10:56)
[2018-08-29 03:25] LABS: ABSOLUTE LYMPHOCYTES (AUTO) 1.2 10^3/uL (0.5-4.7); ABSOLUTE MONOCYTES (AUTO) 0.6 10^3/uL (0.1-1.4); ABSOLUTE NEUT (AUTO) 3.7 10^3/uL (1.7-8.2); BASOPHILS % (AUTO) 0.5 % (0-2); EOSINOPHILS % (AUTO) 0.8 % (0-6); HEMATOCRIT 43.5 % (37.9-51.0); HEMOGLOBIN 14.4 g/dL (13.5-17.0); LYMPHOCYTES % (AUTO) 21.1 % (13-45); MEAN CORPUSCULAR HEMOGLOBIN 33.6 pg (27.0-33.4); MEAN CORPUSCULAR HGB CONC 33.1 g/dL (32.0-36.0); MEAN CORPUSCULAR VOLUME 102 fl (80-97); MONOCYTES % (AUTO) 11.4 % (3-13); PLATELET COUNT 210 10^3/uL (150-450); RED BLOOD COUNT 4.28 10^6/uL (4.35-5.55); RED CELL DISTRIBUTION WIDTH 15.6 % (11.5-14.0); SEGMENTED NEUTROPHILS % (AUTO) 66.2 % (42-78); TOTAL CELLS COUNTED % (AUTO) 100 %; WHITE BLOOD COUNT 5.6 10^3/uL (4.0-10.5)
[2018-08-29 03:44] LABS: ANION GAP 9 (5-19); BLOOD UREA NITROGEN 12 mg/dL (7-20); CALCIUM 8.5 mg/dL (8.4-10.2); CARBON DIOXIDE 30 mmol/L (22-30); CHLORIDE 103 mmol/L (98-107); GLUCOSE 91 mg/dL (75-110); SODIUM 141.9 mmol/L (137-145)
--- NOTE | 2018-08-29 04:13 | PDOC H&P ---
History of Present Illness Admission Date/PCP: 08/28/18 22:20 HEVER BRASHER MD Patient complains of: Shortness of breath and edema History of Present Illness: JOSIAH TAMAYO is a 58 year old male with a past medical history of coronary artery disease, peripheral vascular disease status post aorto bifemoral bypass, hypertension chronic pain, peripheral neuropathy, alcohol and tobacco dependence. Patient presents with at least 2 weeks of shortness of breath with exertion, lower extremity edema and orthopnea. In the emergency department he is noted to have uncontrolled hypertension 170/116, +3 edema from the foot to the waist, and a BNP of 10,000. Patient denies chest pain nausea or vomiting. He receives IV Lasix and referred to the hospitalist for admission. Patient reports recent cardiac catheterization at [facility] which revealed a 70% stenosis of an unknown artery for which he was recommended coronary stenting but he declined in favor of maximal medical management. Patient agrees to release of records from [facility]. Past Medical History Cardiac Medical History: Reports: Hypertension, Peripheral Vascular Disease Denies: Atrial Fibrillation, Congestive Heart Failure, Coronary Artery Disease, DVT, Myocardial Infarction, Hyperlipidema, Pulmonary Embolism Pulmonary Medical History: Reports: Bronchitis Denies: Asthma, Chronic Obstructive Pulmonary Disease (COPD), Sleep Apnea Neurological Medical History: Denies: Seizures Endocrine Medical History: Denies: Diabetes Mellitus Type 1, Diabetes Mellitus Type 2, Hyperthyroidism, Hypothyroidism GI Medical History: Denies: Cirrhosis, Gastroesophageal Reflux Disease, Hepatitis Musculoskeltal Medical History: Denies: Arthritis Psychiatric Medical History: Reports: Alcohol Dependency, Tobacco Dependency Denies: Depression Infectious Medical History: Denies: Clostridium Difficile, Methicillin-Resistant Staph Aureus Past Surgical History Past Surgical History: Reports: Orthopedic Surgery - left knee 30 years ago, Vascular Surgery - Aortobifemoral bypass Social History Information Source: Patient, [facility] Records Smoking Status: Current Every Day Smoker Frequency of Alcohol Use: Heavy Hx Recreational Drug Use: No Drugs: None Hx Prescription Drug Abuse: No - Advance Directive Resuscitation Status: Full Code Family History Family History: CAD, COPD, Hypertension Parental Family History Reviewed: Yes Children Family History Reviewed: Yes Sibling(s) Family History Reviewed.: Yes Medication/Allergy Home Medications: Acetaminophen [Tylenol 325 mg Tablet] 650 mg PO Q4HP PRN tablet 11/17/16 Aspirin [Aspirin 325 mg Tablet] 325 mg PO DAILY #30 tablet 11/17/16 Atorvastatin Calcium [Lipitor 40 mg Tablet] 40 mg PO QHS #30 tablet 11/17/16 Carvedilol [Coreg 6.25 mg Tablet] 6.25 mg PO Q12 #60 tablet 11/17/16 Lisinopril [Prinivil 10 mg Tablet] 10 mg PO DAILY #30 tablet 11/17/16 Walker [Folding Walker] 1 each ASDIR PRN #1 each 11/17/16 Allergies/Adverse Reactions: No Known Allergies Allergy (Verified 08/28/18 22:18) Review of Systems Constitutional: PRESENT: as per HPI, fatigue, headache(s), weakness, weight gain. ABSENT: anorexia, chills, fever(s), night sweats, weight loss Eyes: ABSENT: visual disturbances Ears: ABSENT: hearing changes Cardiovascular: PRESENT: as per HPI, dyspnea on exertion, edema, orthropnea. ABSENT: palpitations Respiratory: PRESENT: as per HPI, cough, dyspnea. ABSENT: hemoptysis, sputum Gastrointestinal: PRESENT: bloating. ABSENT: abdominal pain, heartburn, hemat emesis, hematochezia, vomiting Genitourinary: ABSENT: dysuria, hematuria Musculoskeletal: PRESENT: muscle weakness. ABSENT: joint swelling Integumentary: ABSENT: rash, wounds Neurological: PRESENT: as per HPI, numbness, paresthesias, weakness Psychiatric: ABSENT: anxiety, depression, homidical ideation, suicidal ideation Endocrine: ABSENT: cold intolerance, heat intolerance, polydipsia, polyuria Hematologic/Lymphatic: ABSENT: easy bleeding, easy bruising Physical Exam Vital Signs: Temp Pulse Resp BP Pulse Ox 98.4 F 93 16 135/78 H 99 08/29/18 01:32 08/29/18 01:32 08/29/18 01:32 08/29/18 01:32 08/29/18 01:32 Intake & Output 08/27/18 08/28/18 08/29/18 11:59 11:59 11:59 Output Total 1900 Balance -1900 Weight 86.3 kg General appearance: PRESENT: cooperative, disheveled, mild distress, well- developed, well-nourished. ABSENT: hard of hearing Head exam: PRESENT: atraumatic, normocephalic Eye exam: PRESENT: conjunctiva pink, EOMI, PERRLA. ABSENT: scleral icterus Ear exam: PRESENT: normal external ear exam Mouth exam: PRESENT: moist, tongue midline Neck exam: PRESENT: JVD. ABSENT: carotid bruit, lymphadenopathy, thyromegaly Respiratory exam: PRESENT: accessory muscle use, crackles, decreased breath sounds, prolonged expiratory phas, rales, retraction, symmetrical, tachypnea. ABSENT: rhonchi, wheezes Cardiovascular exam: PRESENT: gallop, +S1, +S2, tachycardia Pulses: PRESENT: normal dorsalis pedis pul Vascular exam: PRESENT: normal capillary refill GI/Abdominal exam: PRESENT: normal bowel sounds, soft. ABSENT: distended, guarding, mass, organolmegaly, rebound, tenderness Rectal exam: PRESENT: deferred Extremities exam: PRESENT: tenderness, +2 edema Neurological exam: PRESENT: alert, awake, oriented to person, oriented to place, oriented to time, oriented to situation, CN II-XII grossly intact. ABSENT: motor sensory deficit Psychiatric exam: PRESENT: appropriate affect, normal mood. ABSENT: homicidal ideation, suicidal ideation Skin exam: PRESENT: dry, erythema, intact. ABSENT: skin tears Results Laboratory Results: 08/29/18 02:50 08/29/18 02:50 08/28/18 08/28/18 08/28/18 19:00 19:05 19:05 WBC 7.7 RBC 4.77 Hgb 16.0 Hct 49.2 MCV 103 H MCH 33.5 H MCHC 32.5 RDW 15.6 H Plt Count 263 Seg Neutrophils % 67.3 Lymphocytes % 23.5 Monocytes % 7.9 Eosinophils % 0.3 Basophils % 1.0 Absolute Neutrophils 5.2 Absolute Lymphocytes 1.8 Absolute Monocytes 0.6 Absolute Eosinophils 0.0 Absolute Basophils 0.1 Retic Count (auto) Absolute Retic Sodium 139.4 Potassium 4.5 Chloride 103 Carbon Dioxide 28 Anion Gap 8 BUN 10 Creatinine 0.72 Est GFR ( Amer) > 60 Est GFR (Non-Af Amer) > 60 Glucose 108 Calcium 8.7 Magnesium Iron TIBC % Saturation Ferritin Total Bilirubin 1.5 H AST 27 ALT 31 Alkaline Phosphatase 111 Total Protein 7.1 Albumin 3.3 L Lipase 59.0 Vitamin B12 Folate TSH Urine Color YELLOW Urine Appearance CLEAR Urine pH 6.0 Ur Specific [place] 1.006 Urine Protein 100 H Urine Glucose (UA) NEGATIVE Urine Ketones NEGATIVE Urine Blood SMALL H Urine Nitrite NEGATIVE Ur Leukocyte Esterase NEGATIVE Urine WBC (Auto) 2 Urine RBC (Auto) 1 08/28/18 08/28/18 08/28/18 19:05 21:05 21:05 WBC RBC Hgb Hct MCV MCH MCHC RDW Plt Count Seg Neutrophils % Lymphocytes % Monocytes % Eosinophils % Basophils % Absolute Neutrophils Absolute Lymphocytes Absolute Monocytes Absolute Eosinophils Absolute Basophils Retic Count (auto) 1.32 Absolute Retic 0.061 Sodium Potassium Chloride Carbon Dioxide Anion Gap BUN Creatinine Est GFR ( Amer) Est GFR (Non-Af Amer) Glucose Calcium Magnesium Iron 65.0 TIBC 354 % Saturation 18 Ferritin 98.20 Total Bilirubin AST ALT Alkaline Phosphatase Total Protein Albumin Lipase Vitamin B12 314.0 Folate 6.91 TSH 2.72 Urine Color Urine Appearance Urine pH Ur Specific [place] Urine Protein Urine Glucose (UA) Urine Ketones Urine Blood Urine Nitrite Ur Leukocyte Esterase Urine WBC (Auto) Urine RBC (Auto) 08/28/18 08/29/18 08/29/18 21:05 02:50 02:50 WBC 5.6 RBC 4.28 L Hgb 14.4 Hct 43.5 MCV 102 H MCH 33.6 H MCHC 33.1 RDW 15.6 H Plt Count 210 Seg Neutrophils % 66.2 Lymphocytes % 21.1 Monocytes % 11.4 Eosinophils % 0.8 Basophils % 0.5 Absolute Neutrophils 3.7 Absolute Lymphocytes 1.2 Absolute Monocytes 0.6 Absolute Eosinophils 0.0 Absolute Basophils 0.0 Retic Count (auto) Absolute Retic Sodium 141.9 Potassium 4.0 Chloride 103 Carbon Dioxide 30 Anion Gap 9 BUN 12 Creatinine 0.67 Est GFR ( Amer) > 60 Est GFR (Non-Af Amer) > 60 Glucose 91 Calcium 8.5 Magnesium 1.6 Iron TIBC % Saturation Ferritin Total Bilirubin AST ALT Alkaline Phosphatase Total Protein Albumin Lipase Vitamin B12 Folate TSH Urine Color Urine Appearance Urine pH Ur Specific [place] Urine Protein Urine Glucose (UA) Urine Ketones Urine Blood Urine Nitrite Ur Leukocyte Esterase Urine WBC (Auto) Urine RBC (Auto) 08/28/18 08/28/18 08/29/18 19:05 21:05 02:50 CK-MB (CK-2) 2.81 Troponin I 0.021 0.021 0.028 NT-Pro-B Natriuret Pep 9980 H Impressions: Chest X-Ray 08/28/18 18:44 IMPRESSION: BORDERLINE CARDIOMEGALY WITH MILD VASCULAR CONGESTION. INTERVAL DEVELOPMENT OF MODERATE RIGHT PLEURAL EFFUSION. Assessment and Plan - Diagnosis (1) Acute on chronic congestive heart failure Qualifiers: Heart failure type: unspecified Qualified Code(s): I50.9 - Heart failure, unspecified Is this a current diagnosis for this admission?: Yes Plan: Likely systolic heart failure secondary to noncompliance with lifestyle medication. Diuresis, rate control, JENNIFER inhibitor, nitrates. Obtain recent 2D echo and cath report from [facility]. Optimize education (2) Alcohol dependence Is this a current diagnosis for this admission?: Yes Plan: Complicated by macrocytic anemia and neuropathy. Possible early Warnicke's encephalopathy. Thiamine and folate ordered, PRN Ativan may require physical th erapy. (3) Orthopnea Is this a current diagnosis for this admission?: Yes Plan: Secondary to #1, diuresis and reevaluation (4) HTN (hypertension) Qualifiers: Hypertension type: unspecified Qualified Code(s): I10 - Essential (primary) hypertension Is this a current diagnosis for this admission?: Yes Plan: Optimize JENNIFER inhibitor, nitrate and loop diuretic. Resume beta-jai when compensated, may require Aldactone (5) Tobacco dependency Is this a current diagnosis for this admission?: Yes Plan: Tobacco Dependence patient received tobacco cessation counseling and offered nicotine replacement options (6) Venous stasis Is this a current diagnosis for this admission?: Yes Plan: Complicated by vascular surgery and congestive heart failure, MAMADOU stockings ordered. - Time Time Spent with patient: 35 or more minutes - Inpatient Certification Medical Necessity: Need Close Monitoring Due to Risk of Patient Decompensation
[2018-08-29] MEDS: ASPIRIN 325 MG TABLET PO SCH (10:50)
--- NOTE | 2018-08-29 16:51 | PDOC PROGRESS REPORT ---
Subjective Progress Note for:: 08/29/18 Subjective:: Patient is not on oxygen. He does report feeling better than yesterday. He did ambulate around the [place] earlier today. Reason For Visit: CAD, HEART FAILURE EXACERBATION Physical Exam Vital Signs: Temp Pulse Resp BP Pulse Ox 97.4 F 83 19 132/82 H 97 08/29/18 15:57 08/29/18 15:57 08/29/18 15:57 08/29/18 15:57 08/29/18 15:57 Intake & Output 08/28/18 08/29/18 08/30/18 06:59 06:59 06:59 Intake Total 400 360 Output Total 2200 Balance -1800 360 Weight 86.3 kg General appearance: PRESENT: no acute distress, cooperative, well-developed Head exam: PRESENT: atraumatic, normocephalic Ear exam: PRESENT: normal external ear exam Respiratory exam: PRESENT: decreased breath sounds - Right base, rales, symmetrical, unlabored. ABSENT: accessory muscle use, rhonchi, tachypnea, wheezes Cardiovascular exam: PRESENT: RRR, +S1, +S2 GI/Abdominal exam: PRESENT: normal bowel sounds, soft. ABSENT: distended, tenderness Musculoskeletal exam: PRESENT: ambulatory, normal inspection Neurological exam: PRESENT: alert, awake, oriented to person, oriented to place, oriented to time, oriented to situation Psychiatric exam: PRESENT: appropriate affect. ABSENT: agitated, anxious Results Laboratory Results: 08/29/18 02:50 08/29/18 02:50 08/28/18 08/28/18 08/28/18 19:00 19:05 19:05 WBC 7.7 RBC 4.77 Hgb 16.0 Hct 49.2 MCV 103 H MCH 33.5 H MCHC 32.5 RDW 15.6 H Plt Count 263 Seg Neutrophils % 67.3 Lymphocytes % 23.5 Monocytes % 7.9 Eosinophils % 0.3 Basophils % 1.0 Absolute Neutrophils 5.2 Absolute Lymphocytes 1.8 Absolute Monocytes 0.6 Absolute Eosinophils 0.0 Absolute Basophils 0.1 Retic Count (auto) Absolute Retic Sodium 139.4 Potassium 4.5 Chloride 103 Carbon Dioxide 28 Anion Gap 8 BUN 10 Creatinine 0.72 Est GFR ( Amer) > 60 Est GFR (Non-Af Amer) > 60 Glucose 108 Calcium 8.7 Magnesium Iron TIBC % Saturation Ferritin Total Bilirubin 1.5 H AST 27 ALT 31 Alkaline Phosphatase 111 Total Protein 7.1 Albumin 3.3 L Lipase 59.0 Vitamin B12 Folate TSH Urine Color YELLOW Urine Appearance CLEAR Urine pH 6.0 Ur Specific [place] 1.006 Urine Protein 100 H Urine Glucose (UA) NEGATIVE Urine Ketones NEGATIVE Urine Blood SMALL H Urine Nitrite NEGATIVE Ur Leukocyte Esterase NEGATIVE Urine WBC (Auto) 2 Urine RBC (Auto) 1 08/28/18 08/28/18 08/28/18 19:05 21:05 21:05 WBC RBC Hgb Hct MCV MCH MCHC RDW Plt Count Seg Neutrophils % Lymphocytes % Monocytes % Eosinophils % Basophils % Absolute Neutrophils Absolute Lymphocytes Absolute Monocytes Absolute Eosinophils Absolute Basophils Retic Count (auto) 1.32 Absolute Retic 0.061 Sodium Potassium Chloride Carbon Dioxide Anion Gap BUN Creatinine Est GFR ( Amer) Est GFR (Non-Af Amer) Glucose Calcium Magnesium Iron 65.0 TIBC 354 % Saturation 18 Ferritin 98.20 Total Bilirubin AST ALT Alkaline Phosphatase Total Protein Albumin Lipase Vitamin B12 314.0 Folate 6.91 TSH 2.72 Urine Color Urine Appearance Urine pH Ur Specific [place] Urine Protein Urine Glucose (UA) Urine Ketones Urine Blood Urine Nitrite Ur Leukocyte Esterase Urine WBC (Auto) Urine RBC (Auto) 08/28/18 08/29/18 08/29/18 21:05 02:50 02:50 WBC 5.6 RBC 4.28 L Hgb 14.4 Hct 43.5 MCV 102 H MCH 33.6 H MCHC 33.1 RDW 15.6 H Plt Count 210 Seg Neutrophils % 66.2 Lymphocytes % 21.1 Monocytes % 11.4 Eosinophils % 0.8 Basophils % 0.5 Absolute Neutrophils 3.7 Absolute Lymphocytes 1.2 Absolute Monocytes 0.6 Absolute Eosinophils 0.0 Absolute Basophils 0.0 Retic Count (auto) Absolute Retic Sodium 141.9 Potassium 4.0 Chloride 103 Carbon Dioxide 30 Anion Gap 9 BUN 12 Creatinine 0.67 Est GFR ( Amer) > 60 Est GFR (Non-Af Amer) > 60 Glucose 91 Calcium 8.5 Magnesium 1.6 Iron TIBC % Saturation Ferritin Total Bilirubin AST ALT Alkaline Phosphatase Total Protein Albumin Lipase Vitamin B12 Folate TSH Urine Color Urine Appearance Urine pH Ur Specific [place] Urine Protein Urine Glucose (UA) Urine Ketones Urine Blood Urine Nitrite Ur Leukocyte Esterase Urine WBC (Auto) Urine RBC (Auto) 08/28/18 08/28/18 08/29/18 19:05 21:05 02:50 CK-MB (CK-2) 2.81 Troponin I 0.021 0.021 0.028 NT-Pro-B Natriuret Pep 9980 H Impressions: Chest X-Ray 08/28/18 18:44 IMPRESSION: BORDERLINE CARDIOMEGALY WITH MILD VASCULAR CONGESTION. INTERVAL DEVELOPMENT OF MODERATE RIGHT PLEURAL EFFUSION. Assessment and Plan - Diagnosis (1) Acute on chronic congestive heart failure Qualifiers: Heart failure type: combined systolic and diastolic Qualified Code(s): I50.43 - Acute on chronic combined systolic (congestive) and diastolic (congestive) heart failure Is this a current diagnosis for this admission?: Yes Plan: Likely systolic heart failure secondary to noncompliance with lifestyle medication. Diuresis, rate control, JENNIFER inhibitor, nitrates. Obtain recent 2D echo and cath report from [facility]. Optimize education 08/29/2018-the patient is feeling better. He reports classic orthopnea. He does not require oxygen. I did review an echocardiogram completed in 2017. At that time his ejection fraction was only 35% with a grade 2/4 diastolic dysfunction. He has combined acute on chronic failure. During this encounter he reported that cardiology told him he had a blockage in his heart but he elected for pharmacologic therapy as opposed to cardiac catheterization. We will continue with diuresis. He has a net negative fluid balance of 1800 mL. He is on Coreg and lisinopril. I will change to Entresto and discontinue the lisinopril. Continue increased dose of furosemide. The patient will benefit from cardiology as an outpatient. (2) Alcohol dependence Is this a current diagnosis for this admission?: Yes Plan: Complicated by macrocytic anemia and neuropathy. Possible early Warnicke's encephalopathy. Thiamine and folate ordered, PRN Ativan may require physical therapy. 08/29/2018-complications as noted above. Possible cardiomyopathy related to alcohol. No evidence of withdrawal at this time. (3) Orthopnea Is this a current diagnosis for this admission?: Yes Plan: Secondary to #1, diuresis and reevaluation 08/29/2018-chest x-ray did demonstrate right pleural effusion. I explained to the patient that this is a classic finding with heart failure and pleural effusion. We are going to continue to diurese the patient. He likely needs a more aggressive regimen as an outpatient. Consider cardiology referral. (4) Venous stasis Is this a current diagnosis for this admission?: Yes Plan: Complicated by vascular surgery and congestive heart failure, MAMADOU stockings ordered. 08/29/2018-if diuretics and compression stockings are not effective consider referral to lymphedema management program. (5) HTN (hypertension) Qualifiers: Hypertension type: unspecified Qualified Code(s): I10 - Essential (primary) hypertension Is this a current diagnosis for this admission?: Yes Plan: Optimize JENNIFER inhibitor, nitrate and loop diuretic. Resume beta-jai when compensated, may require Aldactone 08/29/2018-lisinopril has been changed to Entresto. Blood pressures exhibiting reasonable control. He will likely see a decrease in pressure with increased diuretic therapy. Continue cardiac diet. (6) Tobacco dependency Is this a current diagnosis for this admission?: Yes Plan: Tobacco Dependence patient received tobacco cessation counseling and offered nicotine replacement options 08/29/2018-I did revisit tobacco dependency with the patient. Cessation was encouraged. - Time Time Spent with patient: 15-24 minutes Smoking Cessation Education: 3 to 10 minutes Medications reviewed and adjusted accordingly: Yes Anticipated discharge: Home
[2018-08-29] MEDS: SACUBITRIL/VALSARTAN 49 MG/51 MG TABLET PO SCH (17:37)
[2018-08-30] MEDS: SACUBITRIL/VALSARTAN 49 MG/51 MG TABLET PO SCH ×2 (05:27→18:21)
[2018-08-30] MEDS: HEPARIN SOD (PORCINE) 5,000 UNIT/ML 1 ML SYRINGE SUBCUT SCH ×3 (05:27→21:44)
[2018-08-30 07:23] LABS: ANION GAP 12 (5-19); BLOOD UREA NITROGEN 15 mg/dL (7-20); CALCIUM 8.6 mg/dL (8.4-10.2); CARBON DIOXIDE 25 mmol/L (22-30); CHLORIDE 104 mmol/L (98-107); GLUCOSE 106 mg/dL (75-110); POTASSIUM 4.3 mmol/L (3.6-5.0); SODIUM 140.6 mmol/L (137-145)
[2018-08-30] MEDS: FOLIC ACID 1 MG TABLET PO SCH (09:48)
[2018-08-30] MEDS: POTASSIUM CHLORIDE 10 MEQ CAPSULE.ER PO SCH (09:48)
[2018-08-30] MEDS: CARVEDILOL 6.25 MG TABLET PO SCH ×2 (09:49→21:44)
[2018-08-30] MEDS: CYANOCOBALAMIN (VITAMIN B-12) 1,000 MCG TABLET PO SCH (09:49)
[2018-08-30] MEDS: THIAMINE HCL 100 MG TABLET PO SCH (09:49)
[2018-08-30] MEDS: ASPIRIN 325 MG TABLET PO SCH (09:49)
[2018-08-30] MEDS: NITROGLYCERIN 5 MG (0.2 MG/HR) PATCH.TD24 TD SCH (09:49)
[2018-08-30] MEDS: FUROSEMIDE INJ/PF 20 MG/2 ML SDV IV SCH ×2 (09:51→21:43)
--- NOTE | 2018-08-30 11:56 | PDOC PROGRESS REPORT ---
Subjective Progress Note for:: 08/30/18 Subjective:: JOSIAH TAMAYO is a 58 year old male with a past medical history of coronary artery disease, peripheral vascular disease status post aorto bifemoral bypass, hypertension chronic pain, peripheral neuropathy, alcohol and tobacco dependence. Patient presents with at least 2 weeks of shortness of breath with exertion, lower extremity edema and orthopnea. In the emergency department he is noted to have uncontrolled hypertension 170/116, +3 edema from the foot to the waist, and a BNP of 10,000. Patient denies chest pain nausea or vomiting. He receives IV Lasix and referred to the hospitalist for admission. Patient reports recent cardiac catheterization at [facility] which revealed a 70% stenosis of an unknown artery for which he was recommended coronary stenting but he declined in favor of maximal medical management. Patient agrees to release of records from [facility]. 08/30/2018. No acute events overnight. Patient is ambulatory, p.o. tolerant, having normal bowel and bladder movements. Denies any fever, chills, nausea, vomiting, diarrhea, constipation or any urinary symptoms. On physical examination examination patient still has 2+ pitting edema in bilateral lower extremity. SBP 482727, T-max 97.4, pulse 80s, RR 1622, SPO2 91-97% RA. Fluid balance - 3080 weight 86.3 kg down from 88.2 on admission, WBC 5.6, hemoglobin 14.4, MCV 102, platelets 210, sodium 140.3, potassium 4.3, bicarb 25, creatinine 1.60, iron panel normal. BNP 9980 up from 1670 on 05/25/2018. 2D echo 11/16/2016 left v entricular ejection fraction 35%. Reason For Visit: CAD, HEART FAILURE EXACERBATION Physical Exam Vital Signs: Temp Pulse Resp BP Pulse Ox 97.4 F 88 16 116/64 91 L 08/30/18 03:50 08/30/18 07:00 08/30/18 03:50 08/30/18 03:50 08/30/18 03:50 Intake & Output 08/29/18 08/30/18 08/31/18 06:59 06:59 06:59 Intake Total 400 820 Output Total 2200 3900 Balance -1800 -3080 Weight 86.3 kg 86.3 kg General appearance: PRESENT: no acute distress, well-developed, well-nourished Head exam: PRESENT: atraumatic, normocephalic Eye exam: PRESENT: conjunctiva pink, EOMI, PERRLA. ABSENT: scleral icterus Ear exam: PRESENT: normal external ear exam Mouth exam: PRESENT: moist, tongue midline Neck exam: ABSENT: carotid bruit, JVD, lymphadenopathy, thyromegaly Respiratory exam: PRESENT: clear to auscultation osvaldo. ABSENT: rales, rhonchi, wheezes Cardiovascular exam: PRESENT: RRR. ABSENT: diastolic murmur, rubs, systolic murmur Pulses: PRESENT: normal dorsalis pedis pul Vascular exam: PRESENT: normal capillary refill GI/Abdominal exam: PRESENT: normal bowel sounds, soft. ABSENT: distended, guard ing, mass, organolmegaly, rebound, tenderness Rectal exam: PRESENT: deferred Extremities exam: PRESENT: full ROM, pedal edema, +2 edema. ABSENT: calf tenderness, clubbing Neurological exam: PRESENT: alert, awake, oriented to person, oriented to place, oriented to time, oriented to situation, CN II-XII grossly intact. ABSENT: motor sensory deficit Psychiatric exam: PRESENT: appropriate affect, normal mood. ABSENT: homicidal ideation, suicidal ideation Skin exam: PRESENT: dry, intact, warm. ABSENT: cyanosis, rash Results Laboratory Results: 08/29/18 02:50 08/30/18 06:38 08/30/18 06:38 Sodium 140.6 Potassium 4.3 Chloride 104 Carbon Dioxide 25 Anion Gap 12 BUN 15 Creatinine 0.63 Est GFR ( Amer) > 60 Est GFR (Non-Af Amer) > 60 Glucose 106 Calcium 8.6 08/28/18 08/28/18 08/29/18 19:05 21:05 02:50 CK-MB (CK-2) 2.81 Troponin I 0.021 0.021 0.028 NT-Pro-B Natriuret Pep 9980 H Impressions: Chest X-Ray 08/28/18 18:44 IMPRESSION: BORDERLINE CARDIOMEGALY WITH MILD VASCULAR CONGESTION. INTERVAL DEVELOPMENT OF MODERATE RIGHT PLEURAL EFFUSION. Assessment and Plan - Diagnosis (1) Acute on chronic congestive heart failure Qualifiers: Heart failure type: systolic Qualified Code(s): I50.23 - Acute on chronic systolic (congestive) heart failure Is this a current diagnosis for this admission?: Yes Plan: Systolic heart failure. Most likely due to noncompliance. 2D echo 11/16/2016 left ventricular ejection fraction 35%. BNP 9980 up from 1670 on 05/25/2018. Improving. Fluid balance -3080. Weight 86.3 kg down from 88.2 on admission. SBP 957603, T-max 97.4, pulse 80s, RR 1622, SPO2 91-97% RA. Continue IV Lasix, beta-blockers, Entresto, nitrates. Cardiac diet, strict in and out, daily weights. 08/29/2018 his lisinopril was DC'd and was started on Entresto. (2) Alcohol dependence Qualifiers: Substance use status: uncomplicated Qualified Code(s): F10.20 - Alcohol dependence, uncomplicated Is this a current diagnosis for this admission?: Yes Plan: No sign of withdrawal. Complicated by macrocytic anemia and neuropathy. Possible early Warnicke's encephalopathy. Continue thiamine and folate, B12, PRN Ativan, monitor for DTs. (3) Orthopnea Is this a current diagnosis for this admission?: Yes Plan: As per #1. (4) Venous stasis Is this a current diagnosis for this admission?: Yes Plan: Complicated by vascular surgery and congestive heart failure, MAMADOU stockings ordered. 08/29/2018-if diuretics and compression stockings are not effective consider referral to lymphedema management program. (5) HTN (hypertension) Qualifiers: Hypertension type: unspecified Qualified Code(s): I10 - Essential (primary) hypertension Is this a current diagnosis for this admission?: Yes Plan: Controlled. 08/30/2018: SBP 283931, T-max 97.4, pulse 80s, RR 1622, SPO2 91-97% RA. Continue Entresto, Lasix, Coreg. Outpatient PCP and cardiology follow-up. (6) Tobacco dependency Is this a current diagnosis for this admission?: Yes Plan: Tobacco Dependence. Counseled on quitting. Continue NicoDerm transdermal.
[2018-08-30] MEDS: ATORVASTATIN CALCIUM 40 MG TABLET PO SCH (21:44)
[2018-08-31] MEDS: SACUBITRIL/VALSARTAN 49 MG/51 MG TABLET PO SCH (06:21)
[2018-08-31] MEDS: HEPARIN SOD (PORCINE) 5,000 UNIT/ML 1 ML SYRINGE SUBCUT SCH (06:23)
[2018-08-31] MEDS: ASPIRIN 325 MG TABLET PO SCH (09:08)
[2018-08-31] MEDS: THIAMINE HCL 100 MG TABLET PO SCH (09:09)
[2018-08-31] MEDS: FOLIC ACID 1 MG TABLET PO SCH (09:09)
[2018-08-31] MEDS: CYANOCOBALAMIN (VITAMIN B-12) 1,000 MCG TABLET PO SCH (09:09)
[2018-08-31] MEDS: CARVEDILOL 6.25 MG TABLET PO SCH (09:09)
[2018-08-31] MEDS: NITROGLYCERIN 5 MG (0.2 MG/HR) PATCH.TD24 TD SCH (09:09)
[2018-08-31] MEDS: FUROSEMIDE INJ/PF 20 MG/2 ML SDV IV SCH (09:09)
[2018-08-31 09:40] VITALS: BP 108/92
--- NOTE | 2018-08-31 14:25 | PDOC DISCHARGE SUMMARY ---
General - Admit/Disc Date/PCP Admission Date/Primary Care Provider: 08/28/18 22:20 HEVER BRASHER MD Discharge Date: 08/31/18 - Discharge Diagnosis (1) Acute on chronic congestive heart failure Is this a current diagnosis for this admission?: Yes (2) Alcohol dependence Is this a current diagnosis for this admission?: Yes (3) Orthopnea Is this a current diagnosis for this admission?: Yes (4) Venous stasis Is this a current diagnosis for this admission?: Yes (5) HTN (hypertension) Is this a current diagnosis for this admission?: Yes (6) Tobacco dependency Is this a current diagnosis for this admission?: Yes - Additional Information Resuscitation Status: Full Code Discharge Diet: Cardiac Discharge Activity: Activity As Tolerated, Balance Activity w/Rest, Weigh Daily Prescriptions: Furosemide [Lasix 20 mg Tablet] 30 mg PO BID 30 Days #75 tablet Home Medications: Aspirin [Aspirin 325 mg Tablet] 325 mg PO DAILY 08/29/18 Clopidogrel Bisulfate [Plavix 75 mg Tablet] 75 mg PO DAILY 08/29/18 Lisinopril [Prinivil 5 mg Tablet] 5 mg PO DAILY 08/29/18 Metoprolol Succinate [Toprol Xl] 50 mg PO DAILY 08/29/18 Nitroglycerin [Nitrostat 0.4 mg (1/150 Gr) Tabs 25/Bottle] 1 tab SL Q5MP PRN 08/29/18 Simvastatin [Zocor 40 mg Tablet] 40 mg PO QHS 08/29/18 Furosemide [Lasix 20 mg Tablet] 30 mg PO BID 30 Days #75 tablet 08/31/18 History of Present Illness History of Present Illness: JOSIAH TAMAYO is a 58 year old male with a past medical history of coronary artery disease, peripheral vascular disease status post aorto bifemoral bypass, hypertension chronic pain, peripheral neuropathy, alcohol and tobacco dependence. Patient presents with at least 2 weeks of shortness of breath with exertion, lower extremity edema and orthopnea. In the emergency department he is noted to have uncontrolled hypertension 170/116, +3 edema from the foot to the waist, and a BNP of 10,000. Patient denies chest pain nausea or vomiting. He receives IV Lasix and referred to the hospitalist for admission. Patient reports recent cardiac catheterization at [facility] which revealed a 70% stenosis of an unknown artery for which he was recommended coronary stenting but he declined in favor of maximal medical management. Patient agrees to release of records from [facility]. Hospital Course Hospital Course: (1) Acute on chronic congestive heart failure Systolic heart failure. Most likely due to noncompliance. 2D echo 11/16/2016 left ventricular ejection fraction 35%. Review of records from recent hospitalization at [facility] showed ejection fraction of about 35%. BNP 9980 up from 1670 on 05/25/2018. Improved. Denied any orthopnea or PND at the time of discharge. Ambulatory, having normal bowel and bladder movements. Obtain negative fluid balance. Start on volume restriction and cardiac diet. Weight 86.5 down from 88.2 on admission. Continued IV Lasix, beta-blockers, Entresto, nitrates. 08/29/2018 his lisinopril was DC'd and was started on Entresto. Discharge on p.o. Lasix, beta-blockers lisinopril. Note: Patient was switched to Entresto. He did not want to be discharged on diet as he may not be able to afford it. He was asked to discuss it with his primary doctor and .net developer. Appointment made for him to see Dr. Hooks with his PCP on 09/04/2018. (2) Alcohol dependence No sign of withdrawal. Complicated by macrocytic anemia and neuropathy. Possible early Warnicke's encephalopathy. Continued thiamine and folate, B12, PRN Ativan, monitor for DTs. (3) Orthopnea Resolved. As per #1. (4) Venous stasis Complicated by vascular surgery and congestive heart failure, MAMADOU stockings ordered. 08/29/2018-if diuretics and compression stockings are not effective consider referral to lymphedema management program. (5) HTN (hypertension) Controlled. Continue Entresto, Lasix, Coreg. Note: Patient was switched to Entresto. He did not want Note: Patient was switched to Entresto. He did not want to be discharged on diet as he may not be able to afford it. He was asked to discuss it with his primary doctor and .net developer. (6) Tobacco dependency Tobacco Dependence. Counseled on quitting. Continue NicoDerm transdermal. Physical Exam Vital Signs: Temp Pulse Resp BP Pulse Ox 97.4 F 80 18 108/92 H 98 08/31/18 09:34 08/31/18 09:34 08/31/18 09:34 08/31/18 09:34 08/31/18 09:34 Intake & Output 08/30/18 08/31/18 09/01/18 06:59 06:59 06:59 Intake Total 820 700 Output Total 3900 4320 Balance -3080 -3620 Weight 86.3 kg 86.5 kg General appearance: PRESENT: no acute distress, well-developed, well-nourished Head exam: PRESENT: atraumatic, normocephalic Eye exam: PRESENT: conjunctiva pink, EOMI, PERRLA. ABSENT: scleral icterus Ear exam: PRESENT: normal external ear exam Mouth exam: PRESENT: moist, tongue midline Neck exam: ABSENT: carotid bruit, JVD, lymphadenopathy, thyromegaly Respiratory exam: PRESENT: clear to auscultation osvaldo. ABSENT: rales, rhonchi, wheezes Cardiovascular exam: PRESENT: RRR. ABSENT: diastolic murmur, rubs, systolic murmur Pulses: PRESENT: normal dorsalis pedis pul Vascular exam: PRESENT: normal capillary refill GI/Abdominal exam: PRESENT: normal bowel sounds, soft. ABSENT: distended, guarding, mass, organolmegaly, rebound, tenderness Rectal exam: PRESENT: deferred Extremities exam: PRESENT: full ROM, +1 edema. ABSENT: calf tenderness, clubbing, pedal edema Neurological exam: PRESENT: alert, awake, oriented to person, oriented to place, oriented to time, oriented to situation, CN II-XII grossly intact. ABSENT: motor sensory deficit Psychiatric exam: PRESENT: appropriate affect, normal mood. ABSENT: homicidal ideation, suicidal ideation Skin exam: PRESENT: dry, intact, warm. ABSENT: cyanosis, rash Results Laboratory Results: 08/29/18 02:50 08/30/18 06:38 08/28/18 08/28/18 08/29/18 19:05 21:05 02:50 CK-MB (CK-2) 2.81 Troponin I 0.021 0.021 0.028 NT-Pro-B Natriuret Pep 9980 H Impressions: Chest X-Ray 08/28/18 18:44 IMPRESSION: BORDERLINE CARDIOMEGALY WITH MILD VASCULAR CONGESTION. INTERVAL DEVELOPMENT OF MODERATE RIGHT PLEURAL EFFUSION. Qualifiers - * PATIENT BEING DISCHARGED WITH ANY OF THE FOLLOWING DIAGNOSIS: No Acute Heart Failure Is this a Heart Failure Patient?: Yes Documentation of LVEF assessment?: Yes d) Discharged on evidence-based Beta jai(carvedilol, sustained release metoprolol succinate, or bisoprolol)?: Yes 3. Anticoagulant therapy for permanect/persistent/paraoxysmal Afib or Aflutter: N/A Follow-up Appointment scheduled within 7 days?: Yes
== END 2018-08-31 09:55 | disposition home or self-care (01) | DRG 293 ==
LOC: ER 17:18 → EH 22:20 → 5 08-29 01:30
PROVIDERS: ADMIT Internal Medicine; ATTEND Internal Medicine
DX: I11.0 Hypertensive heart disease with heart failure (principal); I25.10 Atherosclerotic heart disease of native coronary artery without angina pectoris; I50.23 Acute on chronic systolic (congestive) heart failure; R06.01 Orthopnea; I87.8 Other specified disorders of veins; I73.9 Peripheral vascular disease, unspecified; D53.9 Nutritional anemia, unspecified; F10.20 Alcohol dependence, uncomplicated; F17.210 Nicotine dependence, cigarettes, uncomplicated; I25.2 Old myocardial infarction; G89.29 Other chronic pain; Z86.73 Personal history of transient ischemic attack (TIA), and cerebral infarction without residual deficits; Z79.82 Long term (current) use of aspirin; Z79.899 Other long term (current) drug therapy; Z91.19 Patient's noncompliance with other medical treatment and regimen; Z95.5 Presence of coronary angioplasty implant and graft; Z82.49 Family history of ischemic heart disease and other diseases of the circulatory system; Z83.6 Family history of other diseases of the respiratory system
CPT/HCPCS: 36415; 71046; 80048; 80053; 81001; 82553; 82607; 82728; 82746; 83540; 83550; 83690; 83735; 83880; 84443; 84484; 85025; 85045; 93005; 93010; 96374; 99285; J1644; J1940; J3490

== ENCOUNTER 2019-06-07 01:11 | Emergency (ER) | payer MEDICARE ==
[2019-06-07 02:31] LABS: INTERNATIONAL RATION (INR) 1.19; PROTHROMBIN TIME 15.2 SEC (11.4-15.4)
[2019-06-07 02:33] LABS: ABSOLUTE LYMPHOCYTES (AUTO) 1.7 10^3/uL (0.5-4.7); ABSOLUTE MONOCYTES (AUTO) 0.3 10^3/uL (0.1-1.4); MEAN CORPUSCULAR VOLUME 106 fl (80-97); SEGMENTED NEUTROPHILS % (AUTO) 67.3 % (42-78); TOTAL CELLS COUNTED % (AUTO) 100 %; WHITE BLOOD COUNT 6.3 10^3/uL (4.0-10.5)
[2019-06-07 02:37] LABS: ABSOLUTE NEUT (AUTO) 4.3 10^3/uL (1.7-8.2); BASOPHILS % (AUTO) 0.5 % (0-2); EOSINOPHILS % (AUTO) 0.4 % (0-6); HEMATOCRIT 46.1 % (37.9-51.0); HEMOGLOBIN 16.2 g/dL (13.5-17.0); LYMPHOCYTES % (AUTO) 26.8 % (13-45); MEAN CORPUSCULAR HEMOGLOBIN 37.2 pg (27.0-33.4); MEAN CORPUSCULAR HGB CONC 35.1 g/dL (32.0-36.0); PLATELET COUNT 205 10^3/uL (150-450); RED BLOOD COUNT 4.35 10^6/uL (4.35-5.55)
[2019-06-07 02:46] LABS: ALBUMIN 3.9 g/dL (3.5-5.0); ALKALINE PHOSPHATASE 135 U/L (38-126); ANION GAP 7 (5-19); BILIRUBIN,DIRECT 0.6 mg/dL (0.0-0.4); BILIRUBIN,TOTAL 1.5 mg/dL (0.2-1.3); BLOOD UREA NITROGEN 9 mg/dL (7-20); CARBON DIOXIDE 28 mmol/L (22-30); CHLORIDE 104 mmol/L (98-107); CREATINE KINASE 75 U/L (55-170); GLUCOSE 116 mg/dL (75-110); POTASSIUM 3.8 mmol/L (3.6-5.0)
--- NOTE | 2019-06-07 02:47 | RADIOLOGY REPORT (SQ) ---
EXAM DESCRIPTION: X-RAY CHEST 2 VIEWS CLINICAL HISTORY: 59 years, Male, chest pain COMPARISON: None. FINDINGS: PA and lateral chest radiographs were performed at 0231 hours on 06/07/2019. The lungs are overinflated and clear. The costophrenic sulci are sharp. The cardiac silhouette, hilar regions, trachea, soft tissues and bony structures are unremarkable aside from degenerative changes. IMPRESSION: COPD. No active cardiopulmonary lesions.
[2019-06-07 02:58] LABS: CREATINE KINASE MB 2.97 ng/mL (<4.55); TROPONIN I 0.015 ng/mL
[2019-06-07 03:20] LABS: ASPARTATE AMINO TRANSFERASE 1705 U/L (17-59)
[2019-06-07] MEDS ORDERED: ASPIRIN 81 MG TABLET, CHEWABLE ONE (04:52)
--- NOTE | 2019-06-07 06:01 | ER Document Report ---
ED General - General Chief Complaint: Chest Pain Stated Complaint: POSSIBLE HEART ATTACK Time Seen by Provider: 06/07/19 05:59 Primary Care Provider: HEVER BRASHER MD [Primary Care Provider] - Follow up as needed Notes: 59 male presents with intermittent upper abdominal pain and chest pain, separate, abdominal pain is almost every day, worse with taking alcoholnow down to about 3-4 shots a day Also has exertional chest pain which is so bad he needs to drink to get rid of it. This comes with nausea and shortness of breath. He was hospitalized at [facility] 2 weeks ago, and as I found out when talking to the PA from cardiology, was supposed to get a cardiac cath but refused. He also has a history of delio luong. He denies jaundice or icterus nausea or vomiting. TRAVEL OUTSIDE OF THE [place] IN LAST 30 DAYS: No - Related Data Allergies/Adverse Reactions: No Known Allergies Allergy (Verified 08/28/18 22:18) Home Medications: ntg 1/150 sl prn-hasn't taken any. lisinopril 5 mg qday. plavix 75 mg qday. metoprolol ER qday. simvastatin 40 mg qhs. [id number] mg bid (USES IT PRN) Past Medical History - Social History Smoking Status: Current Every Day Smoker Smoking Education Provided: Yes - The patient ED visit today was directly related to their abuse of tobacco. Family History: Reviewed & Not Pertinent Patient has suicidal ideation: No Patient has homicidal ideation: No - Past Medical History Cardiac Medical History: Reports: Hx Hypertension, Hx Peripheral Vascular Disease Denies: Hx Atrial Fibrillation, Hx Congestive Heart Failure, Hx Coronary Artery Disease, Hx DVT, Hx Heart Attack, Hx Hypercholesterolemia, Hx Pulmonary Embolism Pulmonary Medical History: Reports: Hx Bronchitis Denies: Hx Asthma, Hx COPD, Hx Sleep Apnea Neurological Medical History: Denies: Hx Seizures Endocrine Medical History: Denies: Hx Diabetes Mellitus Type 1, Hx Diabetes Mellitus Type 2, Hx Hyperthyroidism, Hx Hypothyroidism Renal/ Medical History: Denies: Hx Peritoneal Dialysis GI Medical History: Denies: Hx Cirrhosis, Hx Gastroesophageal Reflux Disease, Hx Hepatitis Musculoskeletal Medical History: Denies Hx Arthritis Psychiatric Medical History: Denies: Hx Depression Infectious Medical History: Denies: Hx C-Diff, Hx Hepatitis, Hx MRSA Past Surgical History: Reports: Hx Orthopedic Surgery - left knee 30 years ago, Hx Vascular Surgery - Aortobifemoral bypass - Immunizations Hx Diphtheria, Pertussis, Tetanus Vaccination: No Review of Systems - Review of Systems Notes: REVIEW OF SYSTEMS GEN: Denies fever, chills, weight loss ENT: Denies sore throat, nasal discharge, ear pain EYES: Denies blurry vision, eye pain, discharge CV: Chest pain RESP: Chronic cough unchanged GI: Gastric abdominal pain MSK: Denies joint pain/swelling, edema, SKIN: Denies rash, skin lesions LYMPH: Denies swollen glands/lymph nodes NEURO: Denies headache, focal weakness or numbness, dizziness PSYCH: Denies depression, suicidal or homicidal ideation PHYSICAL EXAMINATION General: No acute distress, well-nourished Head: Atraumatic, normocephalic ENT: Mouth normal, oropharynx moist, no exudates or tonsillar enlargement Eyes: Conjunctiva normal, pupils equal, lids normal Neck: No JVD, supple, no guarding CVS: Normal rate, regular rhythm, no murmurs Resp: No resp distress, equal and normal breath sounds bilaterally GI: Nondistended, soft, no tenderness to palpation, no rebound or guarding Ext: No deformities, no edema, normal range of motion in upper and lower ext Back: No CVA or midline TTP Skin: No rash, warm Lymphatic: No lymphadeopathy noted Neuro: Awake, alert. Face symmetric. GCS 15. Physical Exam - Vital signs Vitals: Temp Pulse Resp BP Pulse Ox 97.9 F 89 20 169/115 H 100 06/07/19 01:42 06/07/19 01:42 06/07/19 01:42 06/07/19 01:42 06/07/19 01:42 Course - Re-evaluation Re-evalutation: 06/07/19 09:14 Patient presents with escalating chest pain on exertion as well as some epigastric pain in setting of drinking His EKG shows some T wave inversions. He definitely has angina and needs a cath, but his LFTs are elevated as well Trope negative He was given Nitropaste and his chest pain did not recur. I did a retrograde ultrasound did not show a cause of his upper quadrant pain and the pattern of his LFT elevation suggest hepatitis He does not have acute symptoms and I do not think this reflects acute alcoholic otitis. I got him accepted at [facility], for cath by Saira Bella PA. I t hen discussed again with Dr. Staley from cardiology explaining to him the slight uncertain diagnosis but still stressed that I think the patient needs a cath. They will accept the patient in catheter this afternoon. We will hold off on Lovenox even though I think he has unstable angina, given possible liver disease - Vital Signs Vital signs: Temp Pulse Resp BP Pulse Ox 97.9 F 89 21 H 166/89 H 97 06/07/19 01:42 06/07/19 01:42 06/07/19 07:30 06/07/19 07:30 06/07/19 07:30 - Laboratory Result Diagrams: 06/07/19 02:10 06/07/19 02:10 Laboratory results interpreted by me: 06/07/19 06/07/19 06/07/19 02:10 02:10 02:10 MCV 106 H MCH 37.2 H RDW 16.0 H Glucose 116 H Calcium 8.0 L Total Bilirubin 1.5 H Direct Bilirubin 0.6 H AST 1705 H ALT 542 H Alkaline Phosphatase 135 H NT-Pro-B Natriuret Pep 1640 H - Diagnostic Test Radiology reviewed: Image reviewed, Reports reviewed - EKG Interpretation by Me EKG shows normal: Sinus rhythm Rate: Normal Rhythm: NSR - Inverted T waves lateral precordialno ST changes Critical Care Note - Critical Care Note Total time excluding time spent on procedures (mins): 31 Comments: The above patient is critically ill. Not including procedures, but including direct re-evaluations, speaking with patient and/or consultants, interpreting results, and documenting, I spent the total amount of minute listed listed above on critical care time Discharge - Discharge Clinical Impression: Unstable angina Condition: Fair Disposition: [facility] Referrals: HEVER BRASHER MD [Primary Care Provider] - Follow up as needed
[2019-06-07] MEDS ORDERED: NITROGLYCERIN 2% OINTMENT 1 GM PACKET ONE (06:30)
[2019-06-07] MEDS ORDERED: NITROGLYCERIN 2% OINTMENT 1 GM PACKET TP ONE (06:42)
--- NOTE | 2019-06-07 06:57 | RADIOLOGY REPORT (SQ) ---
Ultrasound of the right upper quadrant of the abdomen: 06/07/2019 5:55 AM TACTICAL DEBRIEFER OFFICER Technique: Multiple grayscale color Doppler images of the right upper quadrant of the abdomen were obtained. Comparison: None available History: 59-year old patient with chest pain, elevated abnormal liver function tests. Findings: The visualized portions of the hepatic parenchyma appear is slightly echogenic. There is no evidence to suggest intra or extrahepatic ductal dilatation. There is normal directional flow seen within the main portal vein. Cholelithiasis is seen with no evidence of gallbladder wall thickening or pericholecystic fluid. Sonographic Jovel's sign was positive. The common duct measures 3.0 mm. The right kidney measures up to 11.9 cm in length. The right kidney demonstrates normal cortical echogenicity with no evidence to suggest hydronephrosis. The visualized portions of the IVC, abdominal aorta, and pancreatic head appear normal. No free intraperitoneal fluid is seen. Impression: Cholelithiasis is seen. The common duct is within normal limits of size. Sonographic Jovel's sign was reported to be positive. Hepatic steatosis
[2019-06-07] MEDS ORDERED: NICOTINE 21 MG/24 HR PATCH.TD24 TD ONE (07:39)
[2019-06-07] MEDS ORDERED: LORAZEPAM 1 MG TABLET PO ONE (07:39)
[2019-06-07 09:40] LABS: INTERNATIONAL RATION (INR) 1.16; PROTHROMBIN TIME 14.9 SEC (11.4-15.4)
[2019-06-07 11:35] VITALS: BP 152/93
== END 2019-06-07 11:48 | disposition short-term general hospital (02) ==
LOC: ER 01:11
DX: I20.0 Unstable angina (principal); R07.9 Chest pain, unspecified; R10.10 Upper abdominal pain, unspecified; R11.0 Nausea; R06.02 Shortness of breath; F17.210 Nicotine dependence, cigarettes, uncomplicated; I10 Essential (primary) hypertension; Z95.1 Presence of aortocoronary bypass graft
CPT/HCPCS: 36415; 82553; 82550; 85025; 85610; 80053; 84484; 83880; 71046; 76705; A9270